=== PATIENT | male | born 1960 | race African-American/Black ===

== ENCOUNTER → 2016-05-02 | Outpatient (CLI) | payer OTHER ==
[2016-05-02 08:24] LABS: ANION GAP 17 (5-19); BLOOD UREA NITROGEN 64 mg/dL (7-20); CALCIUM 8.8 mg/dL (8.4-10.2); CARBON DIOXIDE 30 mmol/L (22-30); CHLORIDE 98 mmol/L (98-107); CREATININE RESULT 7.47 mg/dL (0.52-1.25); GLUCOSE 131 mg/dL (75-110); MAGNESIUM 2.2 mg/dL (1.6-2.3); PHOSPHORUS 5.7 mg/dL (2.5-4.5); POTASSIUM 3.2 mmol/L (3.6-5.0); SODIUM 144.7 mmol/L (137-145)
== END ==
LOC: CCC 07:07
DX: N18.9 Chronic kidney disease, unspecified (principal); E83.39 Other disorders of phosphorus metabolism
CPT/HCPCS: 36415; 80048; 83735; 84100

== ENCOUNTER → 2016-10-06 | Outpatient (CLI) | payer SELFPAY ==
[2016-10-06 08:21] LABS: HEMATOCRIT 37.9 % (37.9-51.0); HEMOGLOBIN 12.2 g/dL (13.5-17.0); HGB HCT DIFFERENCE -1.3; MEAN CORPUSCULAR HEMOGLOBIN 26.4 pg (27.0-33.4); MEAN CORPUSCULAR HGB CONC 32.1 g/dL (32.0-36.0); MEAN CORPUSCULAR VOLUME 82 fl (80-97); RED BLOOD COUNT 4.61 10^6/uL (4.35-5.55); WHITE BLOOD COUNT 7.9 10^3/uL (4.0-10.5)
[2016-10-06 08:23] LABS: APPEARANCE,URINE CLEAR; BILIRUBIN,URINE NEGATIVE (NEGATIVE); GLUCOSE, URINE NEGATIVE (NEGATIVE); KETONES,URINE NEGATIVE (NEGATIVE); LEUKOCYTE ESTERASE,URINE NEGATIVE (NEGATIVE); NITRITE,URINE NEGATIVE (NEGATIVE); PROTEIN,URINE 100 mg/dL (NEGATIVE); UROBILINOGEN,URINE NEGATIVE mg/dL (<2.0)
[2016-10-06 08:49] LABS: ANION GAP 13 (5-19); BLOOD UREA NITROGEN 24 mg/dL (7-20); CALCIUM 8.4 mg/dL (8.4-10.2); CARBON DIOXIDE 21 mmol/L (22-30); CHLORIDE 107 mmol/L (98-107); CREATININE RESULT 4.81 mg/dL (0.52-1.25); GLUCOSE 95 mg/dL (75-110); POTASSIUM 3.5 mmol/L (3.6-5.0); SODIUM 141.2 mmol/L (137-145)
== END ==
LOC: OD 07:16
PROVIDERS: ATTEND Physician Assistant Medical
DX: I12.9 Hypertensive chronic kidney disease with stage 1 through stage 4 chronic kidney disease, or unspecified chronic kidney disease (principal); N18.5 Chronic kidney disease, stage 5; R60.9 Edema, unspecified
CPT/HCPCS: 36415; 80048; 81001; 85027

== ENCOUNTER → 2016-11-11 | Outpatient (CLI) | payer SELFPAY ==
[2016-11-11 08:12] LABS: APPEARANCE,URINE CLEAR; BILIRUBIN,URINE NEGATIVE (NEGATIVE); GLUCOSE, URINE 50 mg/dL (NEGATIVE); KETONES,URINE NEGATIVE (NEGATIVE); LEUKOCYTE ESTERASE,URINE NEGATIVE (NEGATIVE); NITRITE,URINE NEGATIVE (NEGATIVE); PROTEIN,URINE >=500 mg/dL (NEGATIVE); URINE SPECIFIC GRAVITY 1.009; UROBILINOGEN,URINE NEGATIVE mg/dL (<2.0)
[2016-11-11 08:14] LABS: HEMATOCRIT 37.5 % (37.9-51.0); HEMOGLOBIN 12.3 g/dL (13.5-17.0); HGB HCT DIFFERENCE -0.6; MEAN CORPUSCULAR HEMOGLOBIN 26.9 pg (27.0-33.4); MEAN CORPUSCULAR HGB CONC 32.7 g/dL (32.0-36.0); MEAN CORPUSCULAR VOLUME 82 fl (80-97); RED BLOOD COUNT 4.56 10^6/uL (4.35-5.55); WHITE BLOOD COUNT 5.9 10^3/uL (4.0-10.5)
[2016-11-11 08:50] LABS: ANION GAP 13 (5-19); BLOOD UREA NITROGEN 16 mg/dL (7-20); CALCIUM 8.8 mg/dL (8.4-10.2); CARBON DIOXIDE 22 mmol/L (22-30); CHLORIDE 107 mmol/L (98-107); CREATININE RESULT 4.54 mg/dL (0.52-1.25); GLUCOSE 105 mg/dL (75-110); POTASSIUM 3.7 mmol/L (3.6-5.0); SODIUM 142.2 mmol/L (137-145)
== END ==
LOC: OD 07:07
PROVIDERS: ATTEND Physician Assistant Medical
DX: I12.0 Hypertensive chronic kidney disease with stage 5 chronic kidney disease or end stage renal disease (principal); N18.5 Chronic kidney disease, stage 5; R60.9 Edema, unspecified
CPT/HCPCS: 36415; 80048; 81001; 85027

== ENCOUNTER → 2016-12-26 | Outpatient (CLI) | payer SELFPAY ==
[2016-12-26 08:35] LABS: HEMATOCRIT 35.5 % (37.9-51.0); HEMOGLOBIN 11.7 g/dL (13.5-17.0); HGB HCT DIFFERENCE -0.4; MEAN CORPUSCULAR HEMOGLOBIN 26.8 pg (27.0-33.4); MEAN CORPUSCULAR VOLUME 81 fl (80-97); RED BLOOD COUNT 4.37 10^6/uL (4.35-5.55); RED CELL DISTRIBUTION WIDTH 14.8 % (11.5-14.0)
[2016-12-26 08:48] LABS: APPEARANCE,URINE CLEAR; BILIRUBIN,URINE NEGATIVE (NEGATIVE); GLUCOSE, URINE NEGATIVE (NEGATIVE); KETONES,URINE NEGATIVE (NEGATIVE); LEUKOCYTE ESTERASE,URINE NEGATIVE (NEGATIVE); NITRITE,URINE NEGATIVE (NEGATIVE); PROTEIN,URINE 100 mg/dL (NEGATIVE); URINE SPECIFIC GRAVITY 1.009; UROBILINOGEN,URINE NEGATIVE mg/dL (<2.0)
[2016-12-26 08:53] LABS: ANION GAP 10 (5-19); BLOOD UREA NITROGEN 26 mg/dL (7-20); CALCIUM 8.7 mg/dL (8.4-10.2); CARBON DIOXIDE 26 mmol/L (22-30); CHLORIDE 106 mmol/L (98-107); CREATININE RESULT 4.69 mg/dL (0.52-1.25); GLUCOSE 98 mg/dL (75-110); POTASSIUM 3.3 mmol/L (3.6-5.0); SODIUM 142.2 mmol/L (137-145)
[2016-12-26 09:07] LABS: URINE CREATININE 110.3 mg/dL (22-328)
== END ==
LOC: OD 07:06
PROVIDERS: ATTEND Physician Assistant Medical
DX: I12.9 Hypertensive chronic kidney disease with stage 1 through stage 4 chronic kidney disease, or unspecified chronic kidney disease (principal); N18.4 Chronic kidney disease, stage 4 (severe); R60.9 Edema, unspecified
CPT/HCPCS: 36415; 80048; 81001; 82570; 83970; 84100; 84156; 85027

== ENCOUNTER → 2017-04-09 | Outpatient (CLI) | payer SELFPAY ==
[2017-04-09 08:06] LABS: HEMATOCRIT 35.4 % (37.9-51.0); HEMOGLOBIN 11.5 g/dL (13.5-17.0); MEAN CORPUSCULAR HEMOGLOBIN 26.4 pg (27.0-33.4); MEAN CORPUSCULAR HGB CONC 32.5 g/dL (32.0-36.0); MEAN CORPUSCULAR VOLUME 81 fl (80-97); PLATELET COUNT 323 10^3/uL (150-450); RED BLOOD COUNT 4.36 10^6/uL (4.35-5.55); RED CELL DISTRIBUTION WIDTH 15.5 % (11.5-14.0); WHITE BLOOD COUNT 6.8 10^3/uL (4.0-10.5)
[2017-04-09 08:07] LABS: APPEARANCE,URINE CLEAR; BILIRUBIN,URINE NEGATIVE (NEGATIVE); COLOR,URINE STRAW; GLUCOSE, URINE 50 mg/dL (NEGATIVE); KETONES,URINE NEGATIVE (NEGATIVE); LEUKOCYTE ESTERASE,URINE NEGATIVE (NEGATIVE); NITRITE,URINE NEGATIVE (NEGATIVE); PROTEIN,URINE 100 mg/dL (NEGATIVE); URINE SPECIFIC GRAVITY 1.008; UROBILINOGEN,URINE NEGATIVE mg/dL (<2.0)
[2017-04-09 08:18] LABS: ANION GAP 10 (5-19); BLOOD UREA NITROGEN 28 mg/dL (7-20); CALCIUM 7.8 mg/dL (8.4-10.2); CARBON DIOXIDE 26 mmol/L (22-30); CHLORIDE 106 mmol/L (98-107); GLUCOSE 106 mg/dL (75-110); POTASSIUM 3.3 mmol/L (3.6-5.0); SODIUM 142.4 mmol/L (137-145)
[2017-04-09 08:28] LABS: URINE CREATININE 90.2 mg/dL (22-328)
[2017-04-09 08:35] LABS: UR PRO/CREAT RATIO RESULT 2.8 mg/mg (0.0-0.2); URINE PROTEIN 256.2 mg/dL (<12)
== END ==
LOC: OD 07:19
PROVIDERS: ATTEND Physician Assistant Medical
DX: I12.0 Hypertensive chronic kidney disease with stage 5 chronic kidney disease or end stage renal disease (principal); N18.5 Chronic kidney disease, stage 5; E87.6 Hypokalemia
CPT/HCPCS: 36415; 80048; 81001; 82570; 84156; 85027

== ENCOUNTER → 2017-06-19 | Outpatient (CLI) | payer SELFPAY ==
[2017-06-19 08:07] LABS: ANION GAP 12 (5-19); BLOOD UREA NITROGEN 26 mg/dL (7-20); CALCIUM 7.9 mg/dL (8.4-10.2); CARBON DIOXIDE 24 mmol/L (22-30); CHLORIDE 109 mmol/L (98-107); GLUCOSE 102 mg/dL (75-110); PHOSPHORUS 4.4 mg/dL (2.5-4.5); POTASSIUM 3.6 mmol/L (3.6-5.0); SODIUM 144.7 mmol/L (137-145)
[2017-06-19 08:15] LABS: URINE CREATININE 103.9 mg/dL (22-328)
[2017-06-19 08:27] LABS: URINE PROTEIN 310.1 mg/dL (<12)
== END ==
LOC: OD 07:22
PROVIDERS: ATTEND Physician Assistant Medical
DX: I13.2 Hypertensive heart and chronic kidney disease with heart failure and with stage 5 chronic kidney disease, or end stage renal disease (principal); N18.5 Chronic kidney disease, stage 5; I50.9 Heart failure, unspecified; E87.6 Hypokalemia
CPT/HCPCS: 36415; 80048; 82570; 83970; 84100; 84156

== ENCOUNTER → 2017-07-31 | Outpatient (CLI) | payer SELFPAY ==
[2017-07-31 07:33] LABS: HEMATOCRIT 34.9 % (37.9-51.0); HEMOGLOBIN 11.4 g/dL (13.5-17.0); MEAN CORPUSCULAR HEMOGLOBIN 27.2 pg (27.0-33.4); MEAN CORPUSCULAR HGB CONC 32.6 g/dL (32.0-36.0); MEAN CORPUSCULAR VOLUME 83 fl (80-97); PLATELET COUNT 322 10^3/uL (150-450); RED BLOOD COUNT 4.19 10^6/uL (4.35-5.55); RED CELL DISTRIBUTION WIDTH 14.9 % (11.5-14.0); WHITE BLOOD COUNT 6.9 10^3/uL (4.0-10.5)
[2017-07-31 07:39] LABS: APPEARANCE,URINE CLEAR; BILIRUBIN,URINE NEGATIVE (NEGATIVE); COLOR,URINE STRAW; GLUCOSE, URINE 50 mg/dL (NEGATIVE); KETONES,URINE NEGATIVE (NEGATIVE); LEUKOCYTE ESTERASE,URINE NEGATIVE (NEGATIVE); NITRITE,URINE NEGATIVE (NEGATIVE); PROTEIN,URINE >=500 mg/dL (NEGATIVE); URINE SPECIFIC GRAVITY 1.009; UROBILINOGEN,URINE NEGATIVE mg/dL (<2.0)
[2017-07-31 07:51] LABS: ANION GAP 13 (5-19); BLOOD UREA NITROGEN 33 mg/dL (7-20); CALCIUM 7.6 mg/dL (8.4-10.2); CARBON DIOXIDE 23 mmol/L (22-30); CHLORIDE 109 mmol/L (98-107); GLUCOSE 102 mg/dL (75-110); PHOSPHORUS 4.2 mg/dL (2.5-4.5); POTASSIUM 3.9 mmol/L (3.6-5.0)
== END ==
LOC: OD 07:07
PROVIDERS: ATTEND Physician Assistant Medical
DX: I12.0 Hypertensive chronic kidney disease with stage 5 chronic kidney disease or end stage renal disease (principal); N18.5 Chronic kidney disease, stage 5; I50.9 Heart failure, unspecified; E87.6 Hypokalemia
CPT/HCPCS: 36415; 80048; 81001; 83970; 84100; 85027

== ENCOUNTER → 2017-10-02 | Outpatient (CLI) | payer SELFPAY ==
[2017-10-02 09:32] LABS: HEMATOCRIT 35.1 % (37.9-51.0); HEMOGLOBIN 11.6 g/dL (13.5-17.0); MEAN CORPUSCULAR HEMOGLOBIN 27.5 pg (27.0-33.4); MEAN CORPUSCULAR HGB CONC 33.2 g/dL (32.0-36.0); MEAN CORPUSCULAR VOLUME 83 fl (80-97); PLATELET COUNT 348 10^3/uL (150-450); RED BLOOD COUNT 4.24 10^6/uL (4.35-5.55); RED CELL DISTRIBUTION WIDTH 14.4 % (11.5-14.0); WHITE BLOOD COUNT 7.5 10^3/uL (4.0-10.5)
[2017-10-02 09:53] LABS: APPEARANCE,URINE CLEAR; BILIRUBIN,URINE NEGATIVE (NEGATIVE); COLOR,URINE YELLOW; GLUCOSE, URINE 50 mg/dL (NEGATIVE); KETONES,URINE NEGATIVE (NEGATIVE); LEUKOCYTE ESTERASE,URINE NEGATIVE (NEGATIVE); NITRITE,URINE NEGATIVE (NEGATIVE); PROTEIN,URINE >=500 mg/dL (NEGATIVE); URINE SPECIFIC GRAVITY 1.011; UROBILINOGEN,URINE NEGATIVE mg/dL (<2.0)
[2017-10-02 09:56] LABS: ANION GAP 17 (5-19); BLOOD UREA NITROGEN 36 mg/dL (7-20); CALCIUM 7.6 mg/dL (8.4-10.2); CARBON DIOXIDE 21 mmol/L (22-30); CHLORIDE 107 mmol/L (98-107); GLUCOSE 95 mg/dL (75-110); POTASSIUM 3.7 mmol/L (3.6-5.0)
== END ==
LOC: OD 08:58
PROVIDERS: ATTEND Physician Assistant Medical
DX: I12.0 Hypertensive chronic kidney disease with stage 5 chronic kidney disease or end stage renal disease (principal); N18.5 Chronic kidney disease, stage 5; E87.6 Hypokalemia
CPT/HCPCS: 36415; 80048; 81001; 85027

== ENCOUNTER → 2018-01-15 | Outpatient (CLI) | payer SELFPAY ==
[2018-01-15 08:43] LABS: HEMATOCRIT 31.3 % (37.9-51.0); HEMOGLOBIN 10.3 g/dL (13.5-17.0); MEAN CORPUSCULAR HEMOGLOBIN 27.4 pg (27.0-33.4); MEAN CORPUSCULAR HGB CONC 32.9 g/dL (32.0-36.0); MEAN CORPUSCULAR VOLUME 83 fl (80-97); PLATELET COUNT 334 10^3/uL (150-450); RED BLOOD COUNT 3.76 10^6/uL (4.35-5.55); WHITE BLOOD COUNT 7.2 10^3/uL (4.0-10.5)
[2018-01-15 09:08] LABS: ANION GAP 13 (5-19); BLOOD UREA NITROGEN 42 mg/dL (7-20); CARBON DIOXIDE 23 mmol/L (22-30); CHLORIDE 109 mmol/L (98-107); GLUCOSE 95 mg/dL (75-110); POTASSIUM 4.3 mmol/L (3.6-5.0); SODIUM 144.5 mmol/L (137-145)
[2018-01-15 09:31] LABS: CALCIUM 6.7 mg/dL (8.4-10.2)
== END ==
LOC: OD 07:26
PROVIDERS: ATTEND Physician Assistant Medical
DX: I13.2 Hypertensive heart and chronic kidney disease with heart failure and with stage 5 chronic kidney disease, or end stage renal disease (principal); N18.5 Chronic kidney disease, stage 5; I50.9 Heart failure, unspecified; R60.9 Edema, unspecified
CPT/HCPCS: 36415; 80048; 85027

== ENCOUNTER 2018-03-02 16:18 | Inpatient (IN) | payer SELFPAY ==
[2018-03-02 16:50] LABS: ABSOLUTE BASOPHILS # (AUTO) 0.1 10^3/uL (0.0-0.2); ABSOLUTE EOSINOPHILS # (AUTO) 0.5 10^3/uL (0.0-0.6); ABSOLUTE LYMPHOCYTES (AUTO) 1.3 10^3/uL (0.5-4.7); ABSOLUTE MONOCYTES (AUTO) 0.5 10^3/uL (0.1-1.4); ABSOLUTE NEUT (AUTO) 7.5 10^3/uL (1.7-8.2); BASOPHILS % (AUTO) 0.9 % (0-2); EOSINOPHILS % (AUTO) 5.4 % (0-6); HEMATOCRIT 27.4 % (37.9-51.0); HEMOGLOBIN 9.2 g/dL (13.5-17.0); LYMPHOCYTES % (AUTO) 13.4 % (13-45); MEAN CORPUSCULAR HGB CONC 33.4 g/dL (32.0-36.0); MEAN CORPUSCULAR VOLUME 84 fl (80-97); MONOCYTES % (AUTO) 5.2 % (3-13); PLATELET COUNT 362 10^3/uL (150-450); RED BLOOD COUNT 3.27 10^6/uL (4.35-5.55); RED CELL DISTRIBUTION WIDTH 14.2 % (11.5-14.0); SEGMENTED NEUTROPHILS % (AUTO) 75.1 % (42-78); TOTAL CELLS COUNTED % (AUTO) 100 %; WHITE BLOOD COUNT 9.9 10^3/uL (4.0-10.5)
[2018-03-02 17:07] LABS: ALANINE AMINOTRANSFERASE 15 U/L (21-72); ALBUMIN 3.3 g/dL (3.5-5.0); ALKALINE PHOSPHATASE 64 U/L (38-126); ASPARTATE AMINO TRANSFERASE 15 U/L (17-59); BILIRUBIN,DIRECT 0.6 mg/dL (0.0-0.4); BILIRUBIN,TOTAL 0.6 mg/dL (0.2-1.3); CREATINE KINASE 620 U/L (55-170); GLUCOSE 107 mg/dL (75-110); POTASSIUM 4.1 mmol/L (3.6-5.0); TOTAL PROTEIN 6.7 g/dL (6.3-8.2)
[2018-03-02 17:13] LABS: CARBON DIOXIDE 17 mmol/L (22-30); CHLORIDE 101 mmol/L (98-107); SODIUM 141.2 mmol/L (137-145)
[2018-03-02 17:26] LABS: BLOOD UREA NITROGEN 148 mg/dL (7-20)
[2018-03-02 17:27] LABS: ANION GAP 23 (5-19)
[2018-03-02 17:28] LABS: CALCIUM 5.7 mg/dL (8.4-10.2)
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
[2018-03-02 19:08] LABS: GLUCOSE 98 mg/dL (75-110); POTASSIUM 4.4 mmol/L (3.6-5.0)
[2018-03-02 19:13] LABS: ANION GAP 19 (5-19); CARBON DIOXIDE 19 mmol/L (22-30); CHLORIDE 102 mmol/L (98-107); SODIUM 140.3 mmol/L (137-145)
[2018-03-02 19:19] LABS: CREATINE KINASE MB 3.83 ng/mL (<4.55)
[2018-03-02 19:45] LABS: BLOOD UREA NITROGEN 147 mg/dL (7-20)
[2018-03-02 19:48] LABS: CALCIUM 5.6 mg/dL (8.4-10.2); TROPONIN I 0.093 ng/mL
[2018-03-02] MEDS ORDERED: NORMAL SALINE 500 ML IV ONE (19:52)
[2018-03-02] MEDS ORDERED: CALCIUM GLUCONATE 1000 MG/10 ML INJ IV ONE (19:52)
--- NOTE | 2018-03-02 20:16 | EKG REPORT ---
SEVERITY:- ABNORMAL ECG - SINUS RHYTHM RIGHT ATRIAL ABNORMALITY PROBABLE ANTERIOR ISCHEMIA VS LVH WITH SECONDARY REPOL ABNRM : Confirmed by: Ebenezer Ruffin 02-Mar-2018 20:15:26
[2018-03-02] MEDS ORDERED: NORMAL SALINE 1000 ML 1,000 ML IV ONE (20:47)
[2018-03-02] MEDS ORDERED: MAG HYDROX/AL HYDROX/SIMETH SUSP 30 ML UDCUP PO PRN (20:56)
[2018-03-02] MEDS ORDERED: IPRATROPIUM/ALBUTEROL 0.5-2.5 MG/3 ML AMPUL NEB PRN (20:56)
[2018-03-02] MEDS ORDERED: NORMAL SALINE 1000 ML 1,000 ML IV SCH (21:00)
[2018-03-02] MEDS ORDERED: HYDRALAZINE HCL INJ/PF 20 MG/1 ML SDV IV PRN (21:05)
--- NOTE | 2018-03-02 22:03 | RADIOLOGY REPORT (SQ) ---
EXAM DESCRIPTION: X-ray single view chest. CLINICAL HISTORY: 57 years Male, sob COMPARISON: Prior portable chest performed on 06/25/2014. TECHNIQUE: Single portable view of the chest performed on 03/02/2018 at 9:03 PM FINDINGS: The lungs are well expanded and are clear. There is no evidence of a pneumothorax. The cardiac silhouette is stable and enlarged. The mediastinal contours are normal. No acute osseous abnormality is identified. No focal soft tissue abnormalities are seen. Lines and tubes: None. IMPRESSION: 1. No evidence of acute intrathoracic disease. 2. Stable cardiomegaly.
[2018-03-02] MEDS ORDERED: AMLODIPINE BESYLATE 10 MG TABLET PO ONE (23:20)
[2018-03-02] MEDS: HEPARIN SOD (PORCINE) 5,000 UNIT/ML 1 ML SYRINGE SUBCUT SCH (23:24)
[2018-03-02] MEDS: AMLODIPINE BESYLATE 10 MG TABLET PO SCH (23:29)
[2018-03-02] MEDS ORDERED: LISINOPRIL 10 MG TABLET PO ONE (23:59)
[2018-03-02] MEDS ORDERED: CLONIDINE HCL 0.2 MG TABLET PO ONE (23:59)
[2018-03-02] MEDS ORDERED: HYDRALAZINE HCL 50 MG TABLET PO ONE (23:59)
[2018-03-03 00:25] LABS: APPEARANCE,URINE CLEAR; BILIRUBIN,URINE NEGATIVE (NEGATIVE); COLOR,URINE STRAW; GLUCOSE, URINE 50 mg/dL (NEGATIVE); KETONES,URINE NEGATIVE (NEGATIVE); LEUKOCYTE ESTERASE,URINE NEGATIVE (NEGATIVE); NITRITE,URINE NEGATIVE (NEGATIVE); PROTEIN,URINE 100 mg/dL (NEGATIVE); URINE SPECIFIC GRAVITY 1.011; UROBILINOGEN,URINE NEGATIVE mg/dL (<2.0)
--- NOTE | 2018-03-03 02:03 | RADIOLOGY REPORT (SQ) ---
CLINICAL HISTORY: arf COMPARISON: None. TECHNIQUE: US RETROPERITONEUM on 03/02/2018 12:00 AM BOTTLE FILLER FINDINGS: Right kidney measures 8.8 cm and is increased in echogenicity. . Left kidney measures 8.4 cm in greatest dimension and is increased in echogenicity. There is mid pole 2.1 cm simple cyst. IMPRESSION: Bilateral mild renal atrophy with no hydronephrosis.
--- NOTE | 2018-03-03 04:10 | PDOC H&P ---
History of Present Illness Admission Date/PCP: 03/02/18 21:01 Patient complains of: Dizziness History of Present Illness: TERRIE ROSENBAUM is a 57 year old male with a past medical history of poorly controlled hypertension and stage IV chronic kidney disease. She presents shortly after taking his medications feeling lightheaded he seeks evaluation in the emergency room. He admits missing several weeks of medications. In the emergency room is found to have a blood pressure of 180/102, a BUN of 147 and creatinine of 25.8 and hypocalcemia. Patient denies recent change in p.o. intake or urine output and he is otherwise felt well. In the emergency room he receives an IV fluid challenge and referred to the hospitalist for admission. He denies chest pain, shortness of breath, nausea vomiting Past Medical History Cardiac Medical History: Reports: Hypertension Renal/ Medical History: Reports: Chronic Kidney Disease Psychiatric Medical History: Denies: Depression Past Surgical History Past Surgical History: Reports: None Social History Information Source: Patient Lives with: Alone Smoking Status: Never Smoker Frequency of Alcohol Use: Rare Hx Recreational Drug Use: No Drugs: None Hx Prescription Drug Abuse: No - Advance Directive Resuscitation Status: Full Code Family History Family History: CAD, Hypertension Parental Family History Reviewed: Yes Children Family History Reviewed: Yes Sibling(s) Family History Reviewed.: Yes Medication/Allergy Home Medications: Clonidine HCl [Catapres 0.2 mg Tablet] 0.2 mg PO Q12 03/02/18 Furosemide [Lasix 20 mg Tablet] 20 mg PO MO@1800 03/02/18 Hydralazine HCl [Apresoline 50 mg Tablet] 100 mg PO Q8 03/02/18 Lisinopril [Prinivil 10 mg Tablet] 10 mg PO QHS 03/02/18 Sodium Bicarbonate [Sodium Bicarbonate 650 mg Tablet] 650 mg PO DAILY 03/02/18 Allergies/Adverse Reactions: No Known Allergies Allergy (Verified 03/02/18 17:24) Review of Systems Constitutional: ABSENT: chills, fever(s), headache(s), weight gain, weight loss Eyes: ABSENT: visual disturbances Ears: ABSENT: hearing changes Cardiovascular: ABSENT: chest pain, dyspnea on exertion, edema, orthropnea, palpitations Respiratory: ABSENT: cough, hemoptysis Gastrointestinal: ABSENT: abdominal pain, constipation, diarrhea, hematemesis, hematochezia, nausea, vomiting Genitourinary: ABSENT: dysuria, hematuria Musculoskeletal: ABSENT: joint swelling Integumentary: ABSENT: rash, wounds Neurological: ABSENT: abnormal gait, abnormal speech, confusion, dizziness, focal weakness, syncope Psychiatric: ABSENT: anxiety, depression, homidical ideation, suicidal ideation Endocrine: ABSENT: cold intolerance, heat intolerance, polydipsia, polyuria Hematologic/Lymphatic: ABSENT: easy bleeding, easy bruising Physical Exam Vital Signs: Temp Pulse Resp BP Pulse Ox 98.1 F 92 22 H 156/85 H 98 03/03/18 03:13 03/03/18 03:13 03/03/18 03:13 03/03/18 03:13 03/03/18 03:13 Intake & Output 03/01/18 03/02/18 03/03/18 11:59 11:59 11:59 Intake Total 500 Output Total 0 Balance 500 General appearance: PRESENT: no acute distress, well-developed, well-nourished Head exam: PRESENT: atraumatic, normocephalic Eye exam: PRESENT: conjunctiva pink, EOMI, PERRLA. ABSENT: scleral icterus Ear exam: PRESENT: normal external ear exam Mouth exam: PRESENT: moist, tongue midline Neck exam: ABSENT: carotid bruit, JVD, lymphadenopathy, thyromegaly Respiratory exam: PRESENT: clear to auscultation missy. ABSENT: rales, rhonchi, wheezes Cardiovascular exam: PRESENT: RRR. ABSENT: diastolic murmur, rubs, systolic murmur Pulses: PRESENT: normal dorsalis pedis pul Vascular exam: PRESENT: normal capillary refill GI/Abdominal exam: PRESENT: normal bowel sounds, soft. ABSENT: distended, guarding, mass, organolmegaly, rebound, tenderness Rectal exam: PRESENT: deferred Extremities exam: PRESENT: full ROM. ABSENT: calf tenderness, clubbing, pedal edema Neurological exam: PRESENT: alert, awake, oriented to person, oriented to place , oriented to time, oriented to situation, CN II-XII grossly intact. ABSENT: motor sensory deficit Psychiatric exam: PRESENT: appropriate affect, normal mood. ABSENT: homicidal ideation, suicidal ideation Skin exam: PRESENT: dry, intact, warm. ABSENT: cyanosis, rash Results Laboratory Results: 03/02/18 23:50 Urine Color STRAW Urine Appearance CLEAR Urine pH 5.0 Ur Specific [place] 1.011 Urine Protein 100 H Urine Glucose (UA) 50 H Urine Ketones NEGATIVE Urine Blood SMALL H Urine Nitrite NEGATIVE Ur Leukocyte Esterase NEGATIVE Urine WBC (Auto) 2 Urine RBC (Auto) 4 Impressions: Renal Ultrasound 03/02/18 00:00 IMPRESSION: Bilateral mild renal atrophy with no hydronephrosis. Chest X-Ray 03/02/18 20:47 IMPRESSION: 1. No evidence of acute intrathoracic disease. 2. Stable cardiomegaly. Assessment & Plan - Diagnosis (1) Acute renal failure Qualifiers: Acute renal failure type: unspecified Qualified Code(s): N17.9 - Acute kidney failure, unspecified Is this a current diagnosis for this admission?: Yes Plan: IV fluid challenge, follow-up urinalysis, chemistry and nephrology consult (2) Hypocalcemia Is this a current diagnosis for this admission?: Yes Plan: Repletion with follow-up chemistry (3) Rhabdomyolysis Qualifiers: Rhabdomyolysis type: non-traumatic Qualified Code(s): M62.82 - Rhabdomyolysis Is this a current diagnosis for this admission?: Yes Plan: Unclear onset likely confounding acute on chronic renal failure, IV fluid challenge follow-up total CK (4) Malignant hypertension Is this a current diagnosis for this admission?: Yes Plan: Scheduled Norvasc, clonidine and hydralazine as needed - Time Time Spent: 50 to 70 Minutes - Inpatient Certification Medical Necessity: Need Close Monitoring Due to Risk of Patient Decompensation
[2018-03-03 05:07] LABS: ABSOLUTE BASOPHILS # (AUTO) 0.1 10^3/uL (0.0-0.2); ABSOLUTE EOSINOPHILS # (AUTO) 0.5 10^3/uL (0.0-0.6); ABSOLUTE LYMPHOCYTES (AUTO) 1.3 10^3/uL (0.5-4.7); ABSOLUTE MONOCYTES (AUTO) 0.6 10^3/uL (0.1-1.4); ABSOLUTE NEUT (AUTO) 6.1 10^3/uL (1.7-8.2); BASOPHILS % (AUTO) 0.8 % (0-2); EOSINOPHILS % (AUTO) 5.6 % (0-6); HEMATOCRIT 22.7 % (37.9-51.0); LYMPHOCYTES % (AUTO) 15.5 % (13-45); MEAN CORPUSCULAR HEMOGLOBIN 28.4 pg (27.0-33.4); MEAN CORPUSCULAR HGB CONC 33.8 g/dL (32.0-36.0); MEAN CORPUSCULAR VOLUME 84 fl (80-97); MONOCYTES % (AUTO) 6.9 % (3-13); PLATELET COUNT 294 10^3/uL (150-450); RED CELL DISTRIBUTION WIDTH 14.3 % (11.5-14.0); SEGMENTED NEUTROPHILS % (AUTO) 71.2 % (42-78); TOTAL CELLS COUNTED % (AUTO) 100 %; WHITE BLOOD COUNT 8.5 10^3/uL (4.0-10.5)
[2018-03-03 05:14] LABS: HEMOGLOBIN 7.7 g/dL (13.5-17.0)
[2018-03-03 05:31] LABS: CHOLESTEROL 181.56 mg/dL (0-200); CREATINE KINASE 511 U/L (55-170); GLUCOSE 106 mg/dL (75-110); POTASSIUM 4.4 mmol/L (3.6-5.0); TRIGLYCERIDES 271 mg/dL (<150)
[2018-03-03] MEDS: HYDRALAZINE HCL 50 MG TABLET PO SCH ×3 (05:33→22:08)
[2018-03-03] MEDS: HEPARIN SOD (PORCINE) 5,000 UNIT/ML 1 ML SYRINGE SUBCUT SCH ×3 (05:34→22:08)
[2018-03-03 05:39] LABS: CARBON DIOXIDE 16 mmol/L (22-30); CHLORIDE 106 mmol/L (98-107)
[2018-03-03 05:42] LABS: DIRECT LDL 91 mg/dL (<100)
[2018-03-03 05:46] LABS: BLOOD UREA NITROGEN 147 mg/dL (7-20); VLDL CHOLESTEROL 54.2 mg/dL (10-31)
[2018-03-03 05:48] LABS: ANION GAP 20 (5-19)
[2018-03-03 05:56] LABS: CALCIUM 5.5 mg/dL (8.4-10.2)
[2018-03-03] MEDS ORDERED: CALCIUM GLUCONATE 2,000 MG in DEXTROSE 5%-WATER 100 ML IV ONE (06:30)
[2018-03-03] MEDS ORDERED: CALCIUM GLUCONATE 1000 MG/10 ML INJ IV ONE ×2 (06:47→12:00)
[2018-03-03] MEDS ORDERED: CALCIUM GLUCONATE 1,000 MG in DEXTROSE 5%-WATER 50 ML IV ONE (09:57)
[2018-03-03] MEDS ORDERED: SODIUM BICARBONATE 650 MG TABLET PO SCH (10:00)
--- NOTE | 2018-03-03 10:12 | PDOC PROGRESS REPORT ---
Subjective Progress Note for:: 03/03/18 Subjective:: Patient is resting comfortably in bed. He is awaiting breakfast. He has no acute complaints. Reason For Visit: ARF ON CRF, HYPOCALCEMIA Physical Exam Vital Signs: Temp Pulse Resp BP Pulse Ox 97.8 F 92 20 123/66 99 03/03/18 07:38 03/03/18 07:38 03/03/18 07:38 03/03/18 07:38 03/03/18 07:38 Intake & Output 03/02/18 03/03/18 03/04/18 06:59 06:59 06:59 Intake Total 1500 Output Total 200 Balance 1300 Weight 102.9 kg General appearance: PRESENT: no acute distress, cooperative, well-developed Head exam: PRESENT: atraumatic, normocephalic Eye exam: PRESENT: conjunctiva pale. ABSENT: scleral icterus Mouth exam: PRESENT: moist, tongue midline Respiratory exam: PRESENT: clear to auscultation missy, symmetrical, unlabored. ABSENT: rales, rhonchi, wheezes Cardiovascular exam: PRESENT: RRR, +S1, +S2, systolic murmur - 2/6 GI/Abdominal exam: PRESENT: normal bowel sounds, soft. ABSENT: guarding, tenderness Neurological exam: PRESENT: alert, awake, oriented to person, oriented to place , oriented to time, oriented to situation, CN II-XII grossly intact Psychiatric exam: PRESENT: flat affect Results Laboratory Results: 03/03/18 04:15 03/03/18 04:15 03/02/18 03/03/18 03/03/18 23:50 04:15 04:15 WBC 8.5 RBC 2.70 L Hgb 7.7 L Hct 22.7 L MCV 84 MCH 28.4 MCHC 33.8 RDW 14.3 H Plt Count 294 Seg Neutrophils % 71.2 Lymphocytes % 15.5 Monocytes % 6.9 Eosinophils % 5.6 Basophils % 0.8 Absolute Neutrophils 6.1 Absolute Lymphocytes 1.3 Absolute Monocytes 0.6 Absolute Eosinophils 0.5 Absolute Basophils 0.1 Sodium 142.0 Potassium 4.4 Chloride 106 Carbon Dioxide 16 L Anion Gap 20 H BUN 147 H Creatinine 25.75 H Est GFR ( Amer) 2 L Est GFR (Non-Af Amer) 2 L Glucose 106 Calcium 5.5 L* Triglycerides 271 H Cholesterol 181.56 LDL Cholesterol Direct 91 VLDL Cholesterol 54.2 H HDL Cholesterol 24 L Urine Color STRAW Urine Appearance CLEAR Urine pH 5.0 Ur Specific [place] 1.011 Urine Protein 100 H Urine Glucose (UA) 50 H Urine Ketones NEGATIVE Urine Blood SMALL H Urine Nitrite NEGATIVE Ur Leukocyte Esterase NEGATIVE Urine WBC (Auto) 2 Urine RBC (Auto) 4 03/03/18 03/03/18 04:15 04:15 Creatine Kinase 511 H Troponin I 0.101 Impressions: Renal Ultrasound 03/02/18 00:00 IMPRESSION: Bilateral mild renal atrophy with no hydronephrosis. Chest X-Ray 03/02/18 20:47 IMPRESSION: 1. No evidence of acute intrathoracic disease. 2. Stable cardiomegaly. Assessment & Plan - Diagnosis (1) Acute on chronic renal failure Is this a current diagnosis for this admission?: Yes Plan: 03/03/2018-the patient is having a try cath placed this morning for hemodialysis. Please also see nephrology note. (2) Anemia of chronic renal failure Qualifiers: Chronic kidney disease stage: stage 5 Qualified Code(s): N18.5 - Chronic kidney disease, stage 5; D63.1 - Anemia in chronic kidney disease; D63.1 - Anemia in chronic kidney disease Is this a current diagnosis for this admission?: Yes Plan: 03/03/2018-on admission the patient's hemoglobin was 9.3. It is down below 8 today. He may require transfusion with his dialysis. (3) Hypocalcemia Is this a current diagnosis for this admission?: Yes Plan: 03/03/2018-the patient's calcium is still below 6. It does not correct into the normal range with his low albumin. I will administer an additional gram of calcium gluconate and initiate calcium carbonate therapy. (4) Hypertension Qualifiers: Hypertension type: essential hypertension Qualified Code(s): I10 - Essential (primary) hypertension Is this a current diagnosis for this admission?: Yes Plan: 03/03/2018-continue current cardiac meds. Blood pressure is stable this morning. - Time Time Spent with patient: 15-24 minutes Medications reviewed and adjusted accordingly: Yes
[2018-03-03] MEDS: DOCUSATE SODIUM 100 MG CAPSULE PO SCH ×2 (10:46→17:46)
[2018-03-03] MEDS: AMLODIPINE BESYLATE 10 MG TABLET PO SCH (10:46)
[2018-03-03] MEDS: CLONIDINE HCL 0.2 MG TABLET PO SCH ×2 (10:46→22:08)
[2018-03-03] MEDS ORDERED: LIDOCAINE 1% INJ-PF (10 MG/ML) 30 ML SDV ONE (12:43)
[2018-03-03] MEDS: ACETAMINOPHEN 325 MG TABLET PO PRN (17:08)
[2018-03-03] MEDS: CALCIUM CARBONATE 500 MG TABLET PO SCH (17:46)
[2018-03-03] MEDS ORDERED: EPOETIN ALFA INJ 40000 UNIT/1 ML (RENAL) IV PRN (19:19)
--- NOTE | 2018-03-03 20:39 | PDOC CONSULTATION ---
Consultation Consult Date: 03/03/18 Attending physician:: NATO ECHAVARRIA Consult reason:: I was asked to see the patient due to worsening kidney function. History of Present Illness Admission Date/PCP: 03/02/18 21:01 History of Present Illness: TERRIE ROSENBAUM is a 57 year old male known to our practice with history of chronic kidney disease stage V secondary to hypertension who presented to the emergency room yesterday because of lightheadedness after taking his medications. Patient was then found to have elevated blood pressure initially running between 150-190/85- 108 last night. His BUN was 148 and his creatinine is 25.23 with a GFR of 2. Patient was given IV fluid boluses last night but today's kidney function is no different. His baseline kidney function shows a BUN of 42-50 and creatinine of 8-11.9 with EGFR of 5-10 for the last 3-4 months. He also presented with hypocalcemia with calcium of 5.7-5.5 with low albumin of 3.3. Urinalysis showed mild proteinuria and small blood. His chest x-ray showed cardiomegaly but no pulmonary congestion. His kidney ultrasound showed bilateral small kidneys with right kidney measuring at 8.8 cm and left kidney measuring at 8.4 cm with 2.1 cm midpole renal cyst. There is no hydronephrosis. Aside from IV fluids patient was also given IV calcium supplement last night. I am seeing the patient during dialysis treatment this afternoon. He is answering questions appropriately but complains of pain or pressure in the right femoral trialysis catheter insertion site. He also relates that for the last 3-4 days he knows that his blood pressure is been elevated. He told the emergency room provider that he has been missing his blood pressure medications. He admits feeling fatigue, short of breath and more sleepy. He denies any nausea, vomiting or diarrhea. He admits having no appetite and has not really been eating any solids nor much liquids for the last 3-4 days. He denies any chest pain is noticed leg swelling. Currently he is tolerating dialysis without any complications except for the pain as mentioned above. Past Medical History Cardiac Medical History: Reports: Hypertension-primary Renal/ Medical History: Reports: Chronic Kidney Disease Stage V, Hypocalcemia , Metabolic Acidosis Hematology Medical History: Reports Anemia of Chronic Kidney Disease Past Surgical History Past Surgical History: Reports: None Social History Information Source: Patient Lives with: Alone Smoking Status: Never Smoker Frequency of Alcohol Use: Rare Hx Recreational Drug Use: No Drugs: None Hx Prescription Drug Abuse: No - Advance Directive Resuscitation Status: Full Code Family History Family History: Hypertension - Mother Parental Family History Reviewed: Yes Children Family History Reviewed: Unknown Sibling(s) Family History Reviewed.: Yes Medication/Allergy Home Medications: Clonidine HCl [Catapres 0.2 mg Tablet] 0.2 mg PO Q12 03/02/18 Furosemide [Lasix 20 mg Tablet] 20 mg PO MO@1800 03/02/18 Hydralazine HCl [Apresoline 50 mg Tablet] 100 mg PO Q8 03/02/18 Lisinopril [Prinivil 10 mg Tablet] 10 mg PO QHS 03/02/18 Sodium Bicarbonate [Sodium Bicarbonate 650 mg Tablet] 650 mg PO DAILY 03/02/18 Allergies/Adverse Reactions: No Known Allergies Allergy (Verified 03/02/18 17:24) Review of Systems All systems: reviewed and no additional remarkable complaints except as stated Review of Systems: Constitutional: ABSENT: chills, fever(s), headache(s), weight gain, weight loss ; positive fatigue and poor appetite Eyes: ABSENT: visual disturbances Ears: ABSENT: hearing changes Cardiovascular: ABSENT: chest pain, edema, orthropnea, palpitations; admits shortness of breath Respiratory: ABSENT: cough, hemoptysis Gastrointestinal: ABSENT: abdominal pain, constipation, diarrhea, hematemesis, hematochezia, nausea, vomiting Genitourinary: ABSENT: dysuria, hematuria Musculoskeletal: ABSENT: joint swelling Integumentary: ABSENT: rash, wounds Neurological: ABSENT: abnormal gait, abnormal speech, confusion, focal weakness , numbness, syncope; admits lightheadedness Psychiatric: ABSENT: anxiety, depression Endocrine: ABSENT: cold intolerance, heat intolerance, polydipsia, polyuria Hematologic/Lymphatic: ABSENT: easy bleeding, easy bruising, lymphadenopathy Physical Exam Vital Signs: Temp Pulse Resp BP Pulse Ox 98.3 F 91 22 H 108/61 100 03/03/18 16:04 03/03/18 16:04 03/03/18 16:04 03/03/18 16:04 03/03/18 16:04 Intake & Output 03/02/18 03/03/18 03/04/18 06:59 06:59 06:59 Intake Total 1500 1005 Output Total 200 Balance 1300 1005 Weight 102.9 kg Vitals during dialysis currently: Blood pressure 153/87, heart rate of 89, blood flow rate of 250 mL/min, dialysate flow rate of 500 mL/min. Exam: General appearance: No acute distress, cooperative, well-developed, well- nourished Head exam: PRESENT: atraumatic, normocephalic Eye exam: PRESENT: Conjunctiva slightly pale, EOMI, PERRLA. ABSENT: conjunctival injection, scleral icterus Mouth exam: PRESENT: moist, neck supple, tongue midline Neck exam: PRESENT: full ROM. ABSENT: carotid bruit, JVD, lymphadenopathy, thyromegaly Respiratory exam: PRESENT: clear to auscultation bilaterally. ABSENT: rales, rhonchi, stridor, wheezes Cardiovascular exam: PRESENT: RRR, +S1, +S2. ABSENT: systolic murmur Pulses: PRESENT: normal radial pulses, normal dorsalis pedis pulses GI/Abdominal exam: PRESENT: normal bowel sounds, soft. ABSENT: guarding, mass, tenderness Rectal exam: Deferred Extremities exam: PRESENT: full ROM. ABSENT: calf tenderness, pedal edema Musculoskeletal: PRESENT: full ROM. ABSENT: deformity Neurological exam: PRESENT: alert, Awake, Oriented to person, Oriented to place , Oriented to time, reflexes normal, CN II-XII grossly intact. ABSENT: motor sensory deficit Psychiatric exam: PRESENT: appropriate affect, normal mood. ABSENT: homicidal ideation, suicidal ideation Skin exam: PRESENT: intact, dry, warm. ABSENT: rash Results Laboratory Results: 03/03/18 04:15 03/03/18 04:15 03/02/18 03/03/18 03/03/18 23:50 04:15 04:15 WBC 8.5 RBC 2.70 L Hgb 7.7 L Hct 22.7 L MCV 84 MCH 28.4 MCHC 33.8 RDW 14.3 H Plt Count 294 Seg Neutrophils % 71.2 Lymphocytes % 15.5 Monocytes % 6.9 Eosinophils % 5.6 Basophils % 0.8 Absolute Neutrophils 6.1 Absolute Lymphocytes 1.3 Absolute Monocytes 0.6 Absolute Eosinophils 0.5 Absolute Basophils 0.1 Sodium 142.0 Potassium 4.4 Chloride 106 Carbon Dioxide 16 L Anion Gap 20 H BUN 147 H Creatinine 25.75 H Est GFR ( Amer) 2 L Est GFR (Non-Af Amer) 2 L Glucose 106 Calcium 5.5 L* Triglycerides 271 H Cholesterol 181.56 LDL Cholesterol Direct 91 VLDL Cholesterol 54.2 H HDL Cholesterol 24 L Urine Color STRAW Urine Appearance CLEAR Urine pH 5.0 Ur Specific [place] 1.011 Urine Protein 100 H Urine Glucose (UA) 50 H Urine Ketones NEGATIVE Urine Blood SMALL H Urine Nitrite NEGATIVE Ur Leukocyte Esterase NEGATIVE Urine WBC (Auto) 2 Urine RBC (Auto) 4 03/03/18 03/03/18 04:15 04:15 Creatine Kinase 511 H Troponin I 0.101 Impressions: Renal Ultrasound 03/02/18 00:00 IMPRESSION: Bilateral mild renal atrophy with no hydronephrosis. Chest X-Ray 03/02/18 20:47 IMPRESSION: 1. No evidence of acute intrathoracic disease. 2. Stable cardiomegaly. Assessment & Plan - Diagnosis (1) Acute on chronic renal failure Is this a current diagnosis for this admission?: Yes Plan: Patient has acute worsening of his kidney function which could be secondary to volume depletion causing prerenal azotemia. However it is very possible that the patient actually have progressively worsening kidney disease progressing to now end-stage renal disease causing poor appetite which could have led to volume depletion. Some of the patient's symptoms including poor appetite and fatigue could be attributed to worsening underlying chronic kidney disease. Patient has been given IV fluid boluses and still ordered to receive some IV fluid hydration today. This could be continued to see if this can make a difference in terms of the patient's kidney function. Meanwhile I think for solute clearance the patient can benefit from acute dialysis treatment. We are doing dialysis today for 2.5 hours, using the patient's newly placed right inguinal trialysis catheter, with 2 potassium bath, blood flow rate of 250 mL per minute, dialysate flow rate of 500 mL per minute, no ultrafiltration and give saline about 500-1 L during dialysis, no heparin and Procrit with 40, 000 units during dialysis intravenously. Monitor kidney function to determine further need of dialysis treatment which I suspect the patient would need moving forward. Avoid nephrotoxic medications. Hold lisinopril for now. (2) CKD stage 5 secondary to hypertension Is this a current diagnosis for this admission?: Yes Plan: This is due to hypertensive nephrosclerosis. Associated with mild proteinuria. We will check the patient's phosphorus level, intact PTH and urine protein to creatinine ratio. Place the patient on renal dialysis diet. Will do a PPD just in case the patient ends up requiring chronic dialysis treatment. Hepatitis panel is currently pending. I discussed with patient the possibility that he might end up requiring chronic dialysis treatment moving forward if his kidney function does not show any renal recovery in the next couple of days. Discussed how dialysis is being done in the treatment frequency as an outpatient being treated times a week. Discussed benefits and risks. Patient understood and did not have any questions. (3) Anemia of chronic renal failure Qualifiers: Chronic kidney disease stage: stage 5 Qualified Code(s): N18.5 - Chronic kidney disease, stage 5; D63.1 - Anemia in chronic kidney disease; D63.1 - Anemia in chronic kidney disease Is this a current diagnosis for this admission?: Yes Plan: We will give Procrit 40,000 units intravenously during dialysis treatment. Check iron panel. (4) Metabolic acidosis Is this a current diagnosis for this admission?: Yes Plan: Continue sodium bicarbonate for now but hemodialysis will surely help. (5) Hypertension Qualifiers: Hypertension type: essential hypertension Qualified Code(s): I10 - Essential (primary) hypertension Is this a current diagnosis for this admission?: Yes Plan: Continue current blood pressure regimen but discontinue lisinopril. (6) Hypocalcemia Is this a current diagnosis for this admission?: Yes Plan: Patient was given a total of 3 g of IV calcium gluconate earlier today. We will recheck the patient's calcium level tomorrow and replace further if necessary. Also check phosphorus and if needed initiate therapy if elevated. (7) Hyperlipidemia Is this a current diagnosis for this admission?: Yes - Notes Notes: Thank you very much for this consultation. We will follow the patient very closely with you. - Time Time Spent: Greater than 70 Minutes
[2018-03-03] MEDS ORDERED: TUBERCULIN,PURIF.PROT.DERIV. 5 TU/0.1 ML TEST 1 ML VIAL ID ONE (21:15)
[2018-03-03] MEDS ORDERED: LISINOPRIL 10 MG TABLET PO SCH (22:00)
[2018-03-04] MEDS: ACETAMINOPHEN 325 MG TABLET PO PRN (00:54)
[2018-03-04] MEDS: HYDRALAZINE HCL 50 MG TABLET PO SCH ×3 (05:07→22:03)
[2018-03-04] MEDS: HEPARIN SOD (PORCINE) 5,000 UNIT/ML 1 ML SYRINGE SUBCUT SCH ×3 (05:08→22:04)
[2018-03-04 06:26] LABS: URINE CREATININE 89.3 mg/dL (22-328); URINE PROTEIN 182.9 mg/dL (<12)
[2018-03-04 07:05] LABS: ABSOLUTE RETICS # 0.049 10^6/uL (0.028-0.122); HEMATOCRIT 20.5 % (37.9-51.0); MEAN CORPUSCULAR HEMOGLOBIN 28.7 pg (27.0-33.4); MEAN CORPUSCULAR HGB CONC 34.3 g/dL (32.0-36.0); MEAN CORPUSCULAR VOLUME 84 fl (80-97); PLATELET COUNT 287 10^3/uL (150-450); RED BLOOD COUNT 2.45 10^6/uL (4.35-5.55); RED CELL DISTRIBUTION WIDTH 14.1 % (11.5-14.0)
[2018-03-04 07:22] LABS: ALBUMIN 2.4 g/dL (3.5-5.0); ANION GAP 11 (5-19); BLOOD UREA NITROGEN 84 mg/dL (7-20); CARBON DIOXIDE 25 mmol/L (22-30); CHLORIDE 105 mmol/L (98-107); GLUCOSE 94 mg/dL (75-110); IRON(TIBC) 54.1 ug/dL (49-181); PHOSPHORUS 6.1 mg/dL (2.5-4.5); POTASSIUM 4.2 mmol/L (3.6-5.0); SODIUM 140.7 mmol/L (137-145)
[2018-03-04 07:48] LABS: CALCIUM 6.1 mg/dL (8.4-10.2)
[2018-03-04 08:28] LABS: FOLATE 4.24 ng/mL (>2.76)
[2018-03-04] MEDS ORDERED: NORMAL SALINE 250 ML IV PRN (08:51)
[2018-03-04] MEDS ORDERED: HYDROCODONE/ACETAMINOPHEN 5-325 MG TABLET PO PRN (08:52)
[2018-03-04] MEDS ORDERED: CALCIUM GLUCONATE 1,000 MG in DEXTROSE 5%-WATER 50 ML IV SCH (09:00)
--- NOTE | 2018-03-04 09:09 | PDOC PROGRESS REPORT ---
Subjective Progress Note for:: 03/04/18 Subjective:: Patient complains of pain in the right femoral insertion site of his trialysis catheter. He continues to feel tired and fatigued. Otherwise he denies any nausea, no shortness of breath. Reason For Visit: ARF ON CRF, HYPOCALCEMIA Physical Exam Vital Signs: Temp Pulse Resp BP Pulse Ox 98.4 F 96 12 125/77 97 03/04/18 07:21 03/04/18 08:11 03/04/18 08:11 03/04/18 07:21 03/04/18 08:11 Intake & Output 03/03/18 03/04/18 03/05/18 06:59 06:59 06:59 Intake Total 1500 2645 Output Total 200 0 Balance 1300 2645 Weight 102.9 kg 112.7 kg Exam: General appearance: PRESENT: no acute distress, cooperative, well-developed, well-nourished Head exam: PRESENT: atraumatic, normocephalic Eye exam: PRESENT: conjunctiva pale, PERRLA. ABSENT: scleral icterus Neck exam: ABSENT: JVD Respiratory exam: PRESENT: Normal breath sounds. ABSENT: crackles, rales, rhonchi, unlabored, wheezes Cardiovascular exam: PRESENT: Regular rate rhythm -+S1, +S2. ABSENT: diastolic murmur, systolic murmur GI/Abdominal exam: PRESENT: normal bowel sounds, soft. ABSENT: guarding, mass, tenderness Extremities exam: ABSENT: No edema Neurological exam: PRESENT: alert, awake, oriented to person, place and time. Skin exam: PRESENT: dry, warm, Results Laboratory Results: 03/04/18 06:49 03/04/18 06:49 03/04/18 03/04/18 03/04/18 06:49 06:49 06:49 WBC 8.0 RBC 2.45 L Hgb 7.0 L Hct 20.5 L MCV 84 MCH 28.7 MCHC 34.3 RDW 14.1 H Plt Count 287 Retic Count (auto) 2.00 Absolute Retic 0.049 Sodium 140.7 Potassium 4.2 Chloride 105 Carbon Dioxide 25 Anion Gap 11 BUN 84 H Creatinine 16.35 H Est GFR ( Amer) 4 L Est GFR (Non-Af Amer) 3 L Glucose 94 Calcium 6.1 L* Phosphorus 6.1 H Iron 54.1 TIBC 199 L % Saturation 27 Ferritin 108.00 Albumin 2.4 L Vitamin B12 371.0 Folate 4.24 PTH Intact 279.8 H 03/03/18 03/03/18 04:15 04:15 Creatine Kinase 511 H Troponin I 0.101 Impressions: Renal Ultrasound 03/02/18 00:00 IMPRESSION: Bilateral mild renal atrophy with no hydronephrosis. Chest X-Ray 03/02/18 20:47 IMPRESSION: 1. No evidence of acute intrathoracic disease. 2. Stable cardiomegaly. Assessment & Plan - Diagnosis (1) Acute on chronic renal failure Is this a current diagnosis for this admission?: Yes Plan: As I mention the worsening of kidney function is either due to starting uremic symptoms due to progressive deterioration of his kidney disease which could now be at end-stage renal disease causing poor oral intake and dehydration versus merely prerenal azotemia. I favor earlier than the latter. We will prepare the patient for possible eventuality of requiring chronic hemodialysis treatment moving forward. We will plan for PermCath placement early next week depending on how his kidney function is going to respond or improve for the next few days. We will plan to do another dialysis treatment tomorrow. Encourage oral fluid intake. Avoid further nephrotoxic medications. Monitor kidney function daily for the next few days. (2) CKD stage 5 secondary to hypertension Is this a current diagnosis for this admission?: Yes Plan: Associated with nonnephrotic range proteinuria secondary to hypertensive nephrosclerosis due to long-term uncontrolled hypertension. (3) Anemia of chronic renal failure Qualifiers: Chronic kidney disease stage: stage 5 Qualified Code(s): N18.5 - Chronic kidney disease, stage 5; D63.1 - Anemia in chronic kidney disease; D63.1 - Anemia in chronic kidney disease Is this a current diagnosis for this admission?: Yes Plan: Iron panel is acceptable. Will transfuse 1 unit of packed RBC today and possibly 1 or 2 more packed RBC tomorrow during dialysis. Patient will need Procrit and was given the first dose yesterday and now. Will check stool for occult blood. (4) Hypocalcemia Is this a current diagnosis for this admission?: Yes Plan: Phosphorus is pending but I suspect this is due to elevated phosphorus. We will give the patient IV calcium gluconate every 8 hours until calcium is corrected. (5) Secondary hyperparathyroidism (of renal origin) Is this a current diagnosis for this admission?: Yes Plan: Start calcitriol 0.25 mcg daily (6) Hypertension Qualifiers: Hypertension type: essential hypertension Qualified Code(s): I10 - Essential (primary) hypertension Is this a current diagnosis for this admission?: Yes Plan: Well-controlled on current regimen. (7) Metabolic acidosis Is this a current diagnosis for this admission?: Yes Plan: Resolved with dialysis. Discontinue sodium bicarbonate. (8) Hyperlipidemia Is this a current diagnosis for this admission?: Yes - Time Time with patient: Greater than 35 minutes
[2018-03-04] MEDS: CALCIUM CARBONATE 500 MG TABLET PO SCH ×2 (09:34→17:55)
[2018-03-04] MEDS: DOCUSATE SODIUM 100 MG CAPSULE PO SCH ×2 (09:34→17:50)
[2018-03-04] MEDS: AMLODIPINE BESYLATE 10 MG TABLET PO SCH (09:34)
[2018-03-04] MEDS: CLONIDINE HCL 0.2 MG TABLET PO SCH ×2 (09:34→22:04)
[2018-03-04 10:22] LABS: HEMATOCRIT 21.8 % (37.9-51.0); MEAN CORPUSCULAR HEMOGLOBIN 28.4 pg (27.0-33.4); MEAN CORPUSCULAR HGB CONC 34.2 g/dL (32.0-36.0); MEAN CORPUSCULAR VOLUME 83 fl (80-97); PLATELET COUNT 315 10^3/uL (150-450); RED BLOOD COUNT 2.62 10^6/uL (4.35-5.55); RED CELL DISTRIBUTION WIDTH 14.8 % (11.5-14.0); WHITE BLOOD COUNT 8.3 10^3/uL (4.0-10.5)
[2018-03-04 10:26] LABS: HEMOGLOBIN 7.5 g/dL (13.5-17.0)
[2018-03-04 10:38] LABS: ANION GAP 11 (5-19); BLOOD UREA NITROGEN 82 mg/dL (7-20); CARBON DIOXIDE 25 mmol/L (22-30); CHLORIDE 105 mmol/L (98-107); GLUCOSE 136 mg/dL (75-110); POTASSIUM 4.2 mmol/L (3.6-5.0); SODIUM 141.2 mmol/L (137-145)
[2018-03-04 10:58] LABS: CALCIUM 6.2 mg/dL (8.4-10.2)
[2018-03-04] MEDS: CALCITRIOL 0.25 MCG CAPSULE PO SCH (11:24)
[2018-03-04] MEDS: CALCIUM GLUCONATE 1000 MG/10 ML INJ IV SCH ×2 (11:25→17:55)
--- NOTE | 2018-03-04 16:53 | Operative Report ---
Operative Report DATE OF SURGERY: 03/03/18 PREOPERATIVE DIAGNOSIS: Acute renal failure requiring hemodialysis. POSTOPERATIVE DIAGNOSIS: Acute renal failure requiring hemodialysis. OPERATION: 1. Ultrasound evaluation of the right femoral vein. Insertion of temporary hemodialysis catheter via real-time access in the right femoral vein. SURGEON: AARTI WOODS [employer]ENCY DIRECTOR: None. ANESTHESIA: Local TISSUE REMOVED OR ALTERED: Not applicable. COMPLICATIONS: None. ESTIMATED BLOOD LOSS: 2 mL. INTRAOPERATIVE FINDINGS: Of a satisfactory caliber right femoral vein estimated to be about 2 cm in diameter. Satisfactory real-time access and positioning of the temporary dialysis catheter. Easy egress of blood and ingress of heparinized solution through all 3 ports. PROCEDURE: After obtaining informed consent, the patient was positioned supine at bedside. The[ left groin] and adjacent areas were prepared with chlorhexidine and draped out with sterile linen. After the universal timeout the procedure commenced. A steriley sheathed ultrasound probe was used to evaluate the [right femoral vein]. Local anesthesia was infiltrated adjacent to the probe. Access into the right femoral was accomplished using a micropuncture needle followed, by micropuncture wire and then with a micropuncture catheter. This was followed by introduction of a 0.035 guidewire, the skin opening was enlarged slightly, serially larger dilators were now placed followed by introduction of a triaysis catheter. All of these transitions were smooth. Each lumen was aspirated of blood and irrigated with heparinized solution. The catheter was now sutured to the skin using 3-0 nylon. A Bio A patch was now applied, followed by sterile dressings. Caps were placed on the end of the each of the lumens. The procedure concluded. Copies dictated operative report to Dr. Aarti Edwards MD.
[2018-03-04] MEDS ORDERED: POLYETHYLENE GLYCOL 3350 POWDER 17 GM/1 PACKET PO PRN (17:31)
--- NOTE | 2018-03-04 17:41 | PDOC PROGRESS REPORT ---
Subjective Progress Note for:: 03/04/18 Subjective:: Patient is resting comfortably in bed. He is awaiting breakfast. He has no acute complaints. 03/04/2018-patient has had a bowel movement. He is feeling better. He still has pain in the right groin from the temporary dialysis catheter. Reason For Visit: ARF ON CRF, HYPOCALCEMIA Physical Exam Vital Signs: Temp Pulse Resp BP Pulse Ox 98.8 F 102 H 16 134/78 H 99 03/04/18 16:01 03/04/18 16:01 03/04/18 16:01 03/04/18 16:01 03/04/18 16:01 Intake & Output 03/03/18 03/04/18 03/05/18 06:59 06:59 06:59 Intake Total 1500 2645 887 Output Total 200 0 175 Balance 1300 2645 712 Weight 102.9 kg 112.7 kg General appearance: PRESENT: no acute distress, cooperative, well-developed Head exam: PRESENT: atraumatic, normocephalic Respiratory exam: PRESENT: clear to auscultation missy, symmetrical, unlabored. ABSENT: rales, rhonchi, wheezes Cardiovascular exam: PRESENT: RRR, +S1, +S2 GI/Abdominal exam: PRESENT: normal bowel sounds, soft. ABSENT: guarding, rebound, tenderness Gentrourinary exam: PRESENT: other - Temporary dialysis catheter right groin Musculoskeletal exam: PRESENT: ambulatory Neurological exam: PRESENT: alert, awake, oriented to person, oriented to place , oriented to time, oriented to situation, CN II-XII grossly intact Psychiatric exam: PRESENT: appropriate affect, normal mood. ABSENT: agitated, anxious, depressed Focused psych exam: ABSENT: restlessness Results Laboratory Results: 03/04/18 09:50 03/04/18 09:50 03/04/18 03/04/18 03/04/18 06:49 06:49 06:49 WBC 8.0 RBC 2.45 L Hgb 7.0 L Hct 20.5 L MCV 84 MCH 28.7 MCHC 34.3 RDW 14.1 H Plt Count 287 Retic Count (auto) 2.00 Absolute Retic 0.049 Sodium 140.7 Potassium 4.2 Chloride 105 Carbon Dioxide 25 Anion Gap 11 BUN 84 H Creatinine 16.35 H Est GFR ( Amer) 4 L Est GFR (Non-Af Amer) 3 L Glucose 94 Calcium 6.1 L* Phosphorus 6.1 H Iron 54.1 TIBC 199 L % Saturation 27 Ferritin 108.00 Albumin 2.4 L Vitamin B12 371.0 Folate 4.24 PTH Intact 279.8 H Blood Type Antibody Screen 03/04/18 03/04/18 03/04/18 09:50 09:50 09:50 WBC 8.3 RBC 2.62 L Hgb 7.5 L Hct 21.8 L MCV 83 MCH 28.4 MCHC 34.2 RDW 14.8 H Plt Count 315 Retic Count (auto) Absolute Retic Sodium 141.2 Potassium 4.2 Chloride 105 Carbon Dioxide 25 Anion Gap 11 BUN 82 H Creatinine 16.58 H Est GFR ( Amer) 4 L Est GFR (Non-Af Amer) 3 L Glucose 136 H Calcium 6.2 L* Phosphorus Iron TIBC % Saturation Ferritin Albumin Vitamin B12 Folate PTH Intact Blood Type A POSITIVE Antibody Screen NEGATIVE 03/03/18 03/03/18 04:15 04:15 Creatine Kinase 511 H Troponin I 0.101 Impressions: Renal Ultrasound 03/02/18 00:00 IMPRESSION: Bilateral mild renal atrophy with no hydronephrosis. Chest X-Ray 03/02/18 20:47 IMPRESSION: 1. No evidence of acute intrathoracic disease. 2. Stable cardiomegaly. Assessment & Plan - Diagnosis (1) Acute on chronic renal failure Qualifiers: Chronic kidney disease stage: on chronic dialysis Is this a current diagnosis for this admission?: Yes Plan: 03/03/2018-the patient is having a try cath placed this morning for hemodialysis. Please also see nephrology note. 03/04/2018-I did speak with Dr. Lewis today. The patient is now considered end -stage with permanent need for hemodialysis. A permacath will be placed in the next several days. Dr. Edwards will then work on creating a fistula while the patient continues dialysis with the permacath. Please also see nephrology note. (2) Anemia of chronic renal failure Qualifiers: Chronic kidney disease stage: stage 5 Qualified Code(s): N18.5 - Chronic kidney disease, stage 5; D63.1 - Anemia in chronic kidney disease; D63.1 - Anemia in chronic kidney disease Is this a current diagnosis for this admission?: Yes Plan: 03/03/2018-on admission the patient's hemoglobin was 9.3. It is down below 8 today. He may require transfusion with his dialysis. 03/04/2018-the patient did receive a unit of packed cells with dialysis yesterday I believe as well as the unit today. He will receive another unit tomorrow with dialysis. (3) Hypocalcemia Is this a current diagnosis for this admission?: Yes Plan: 03/03/2018-the patient's calcium is still below 6. It does not correct into the normal range with his low albumin. I will administer an additional gram of calcium gluconate and initiate calcium carbonate therapy. 03/04/2018-the patient is on oral calcium supplement. The patient was also started on calcitriol. He has an elevated parathyroid hormone and hypocalcemia. (4) Hypertension Qualifiers: Hypertension type: essential hypertension Qualified Code(s): I10 - Essential (primary) hypertension Is this a current diagnosis for this admission?: Yes Plan: 03/03/2018-continue current cardiac meds. Blood pressure is stable this morning. 03/04/2018-patient is currently on hydralazine, Norvasc and clonidine. Continue this regimen. He seems to have reasonable blood pressure control. - Time Time Spent with patient: 15-24 minutes Medications reviewed and adjusted accordingly: Yes Anticipated discharge: Home - Plan Summary Plan Summary: I did speak with Dr. Lewis today. The patient is now considered end-stage renal disease and will need ongoing hemodialysis
[2018-03-04 19:02] LABS: ABSOLUTE BASOPHILS # (AUTO) 0.1 10^3/uL (0.0-0.2); ABSOLUTE EOSINOPHILS # (AUTO) 0.3 10^3/uL (0.0-0.6); ABSOLUTE LYMPHOCYTES (AUTO) 2.1 10^3/uL (0.5-4.7); ABSOLUTE MONOCYTES (AUTO) 0.9 10^3/uL (0.1-1.4); ABSOLUTE NEUT (AUTO) 6.2 10^3/uL (1.7-8.2); BASOPHILS % (AUTO) 0.8 % (0-2); EOSINOPHILS % (AUTO) 2.7 % (0-6); HEMATOCRIT 24.9 % (37.9-51.0); HEMOGLOBIN 8.3 g/dL (13.5-17.0); LYMPHOCYTES % (AUTO) 21.7 % (13-45); MEAN CORPUSCULAR HEMOGLOBIN 28.2 pg (27.0-33.4); MEAN CORPUSCULAR HGB CONC 33.4 g/dL (32.0-36.0); MEAN CORPUSCULAR VOLUME 84 fl (80-97); MONOCYTES % (AUTO) 9.4 % (3-13); PLATELET COUNT 313 10^3/uL (150-450); RED BLOOD COUNT 2.95 10^6/uL (4.35-5.55); RED CELL DISTRIBUTION WIDTH 14.7 % (11.5-14.0); SEGMENTED NEUTROPHILS % (AUTO) 65.4 % (42-78); TOTAL CELLS COUNTED % (AUTO) 100 %; WHITE BLOOD COUNT 9.5 10^3/uL (4.0-10.5)
[2018-03-05] MEDS: CALCIUM GLUCONATE 1000 MG/10 ML INJ IV SCH ×4 (02:38→22:43)
[2018-03-05] MEDS ORDERED: EPOETIN ALFA INJ 40000 UNIT/1 ML (RENAL) IV PRN (05:00)
[2018-03-05] MEDS ORDERED: NORMAL SALINE 1000 ML 1,000 ML IV PRN (05:00)
[2018-03-05] MEDS: HYDRALAZINE HCL 50 MG TABLET PO SCH ×3 (05:17→22:42)
[2018-03-05] MEDS: HEPARIN SOD (PORCINE) 5,000 UNIT/ML 1 ML SYRINGE SUBCUT SCH ×3 (05:17→22:43)
[2018-03-05 07:42] LABS: HEPATITS B SURFACE ANTIGEN Negative (Negative)
[2018-03-05 09:48] LABS: HEMATOCRIT 24.2 % (37.9-51.0); HEMOGLOBIN 8.1 g/dL (13.5-17.0); MEAN CORPUSCULAR HEMOGLOBIN 28.4 pg (27.0-33.4); MEAN CORPUSCULAR HGB CONC 33.6 g/dL (32.0-36.0); MEAN CORPUSCULAR VOLUME 85 fl (80-97); PLATELET COUNT 320 10^3/uL (150-450); RED BLOOD COUNT 2.87 10^6/uL (4.35-5.55); RED CELL DISTRIBUTION WIDTH 14.5 % (11.5-14.0); WHITE BLOOD COUNT 8.7 10^3/uL (4.0-10.5)
[2018-03-05] MEDS: CALCIUM CARBONATE 500 MG TABLET PO SCH ×2 (09:52→17:28)
[2018-03-05] MEDS: CLONIDINE HCL 0.2 MG TABLET PO SCH ×2 (09:52→22:43)
[2018-03-05] MEDS: DOCUSATE SODIUM 100 MG CAPSULE PO SCH ×2 (09:52→17:28)
[2018-03-05] MEDS: AMLODIPINE BESYLATE 10 MG TABLET PO SCH (09:52)
[2018-03-05] MEDS: CALCITRIOL 0.25 MCG CAPSULE PO SCH (09:52)
[2018-03-05 10:14] LABS: ANION GAP 16 (5-19); BLOOD UREA NITROGEN 87 mg/dL (7-20); CARBON DIOXIDE 22 mmol/L (22-30); CHLORIDE 102 mmol/L (98-107); GLUCOSE 143 mg/dL (75-110); POTASSIUM 4.4 mmol/L (3.6-5.0)
--- NOTE | 2018-03-05 10:22 | PDOC PROGRESS REPORT ---
Subjective Progress Note for:: 03/05/18 - seen on rounds this morning Subjective:: states he feels fine. states he had SOB for the last week. he's wondering about this dialysis plan and when he can go home. advised him that likely he will be around until next week. advised him to ask conventional mortgage underwriter today about further dialysis related questions Reason For Visit: ARF ON CRF, HYPOCALCEMIA Physical Exam Vital Signs: Temp Pulse Resp BP Pulse Ox 98.1 F 93 14 144/84 H 95 03/05/18 07:49 03/05/18 10:11 03/05/18 10:11 03/05/18 07:49 03/05/18 10:11 Intake & Output 03/04/18 03/05/18 03/06/18 06:59 06:59 06:59 Intake Total 2645 1127 Output Total 0 325 Balance 2645 802 Weight 248 lb 7.375 oz 249 lb 1.957 oz General appearance: PRESENT: no acute distress Head exam: PRESENT: atraumatic, normocephalic Eye exam: PRESENT: EOMI, PERRLA Ear exam: PRESENT: normal external ear exam Mouth exam: PRESENT: moist, tongue midline Neck exam: ABSENT: tracheal deviation Respiratory exam: PRESENT: clear to auscultation missy, symmetrical, unlabored Cardiovascular exam: PRESENT: +S1, +S2 GI/Abdominal exam: PRESENT: normal bowel sounds, soft. ABSENT: tenderness Musculoskeletal exam: ABSENT: tenderness Neurological exam: PRESENT: alert, awake, oriented to person, oriented to place , oriented to time, oriented to situation, CN II-XII grossly intact Skin exam: PRESENT: dry, warm Results Laboratory Results: 03/05/18 09:20 03/04/18 03/04/18 03/04/18 09:50 09:50 09:50 WBC 8.3 RBC 2.62 L Hgb 7.5 L Hct 21.8 L MCV 83 MCH 28.4 MCHC 34.2 RDW 14.8 H Plt Count 315 Seg Neutrophils % Lymphocytes % Monocytes % Eosinophils % Basophils % Absolute Neutrophils Absolute Lymphocytes Absolute Monocytes Absolute Eosinophils Absolute Basophils Sodium 141.2 Potassium 4.2 Chloride 105 Carbon Dioxide 25 Anion Gap 11 BUN 82 H Creatinine 16.58 H Est GFR ( Amer) 4 L Est GFR (Non-Af Amer) 3 L Glucose 136 H Calcium 6.2 L* Blood Type A POSITIVE Antibody Screen NEGATIVE 03/04/18 03/05/18 18:50 09:20 WBC 9.5 8.7 RBC 2.95 L 2.87 L Hgb 8.3 L 8.1 L Hct 24.9 L 24.2 L MCV 84 85 MCH 28.2 28.4 MCHC 33.4 33.6 RDW 14.7 H 14.5 H Plt Count 313 320 Seg Neutrophils % 65.4 Lymphocytes % 21.7 Monocytes % 9.4 Eosinophils % 2.7 Basophils % 0.8 Absolute Neutrophils 6.2 Absolute Lymphocytes 2.1 Absolute Monocytes 0.9 Absolute Eosinophils 0.3 Absolute Basophils 0.1 Sodium Potassium Chloride Carbon Dioxide Anion Gap BUN Creatinine Est GFR ( Amer) Est GFR (Non-Af Amer) Glucose Calcium Blood Type Antibody Screen 03/03/18 03/03/18 04:15 04:15 Creatine Kinase 511 H Troponin I 0.101 Impressions: Renal Ultrasound 03/02/18 00:00 IMPRESSION: Bilateral mild renal atrophy with no hydronephrosis. Chest X-Ray 03/02/18 20:47 IMPRESSION: 1. No evidence of acute intrathoracic disease. 2. Stable cardiomegaly. Assessment & Plan - Diagnosis (1) Acute on chronic renal failure Qualifiers: Chronic kidney disease stage: on chronic dialysis Is this a current diagnosis for this admission?: Yes (2) CKD stage 5 secondary to hypertension Is this a current diagnosis for this admission?: Yes (3) Combined systolic and diastolic heart failure Qualifiers: Heart failure chronicity: chronic Qualified Code(s): I50.42 - Chronic combined systolic (congestive) and diastolic (congestive) heart failure Is this a current diagnosis for this admission?: Yes (4) Hypertension Qualifiers: Hypertension type: essential hypertension Qualified Code(s): I10 - Essential (primary) hypertension Is this a current diagnosis for this admission?: Yes (5) Hypocalcemia Is this a current diagnosis for this admission?: Yes - Plan Summary Plan Summary: plan is to have dialysis today- nephrology is consulted- appreciate assistance. he's not having any other acute complaints today. c/w current medications hopefully he will have perma cath next week and be discharged
[2018-03-05 11:25] LABS: HEPATITIS B CORE AB TOT Positive (Negative)
[2018-03-05 11:26] LABS: HEPATITIS B SURFACE AB QUANT 10.2 mIU/mL (Immunity>9)
[2018-03-05] MEDS ORDERED: CALCIUM GLUCONATE 1,000 MG in DEXTROSE 5%-WATER 50 ML IV SCH (20:45)
--- NOTE | 2018-03-05 20:50 | PDOC PROGRESS REPORT ---
Subjective Progress Note for:: 03/05/18 Subjective:: I am seeing the patient on dialysis tonight. He is tolerating dialysis well with good blood pressures. He tells me that he feels better and his nausea is better. He said he is able to eat his breakfast and half of his lunch. However looks like he still feels tired since he slept all day today. His pain over the right groin area where the trialysis catheter is much better today. He has some questions regarding his dialysis schedule. Reason For Visit: ARF ON CRF, HYPOCALCEMIA Physical Exam Vital Signs: Temp Pulse Resp BP Pulse Ox 98.2 F 95 16 130/76 H 98 03/05/18 15:22 03/05/18 15:22 03/05/18 15:22 03/05/18 15:22 03/05/18 15:22 Intake & Output 03/04/18 03/05/18 03/06/18 06:59 06:59 06:59 Intake Total 2645 1127 474 Output Total 0 325 400 Balance 2645 802 74 Weight 112.7 kg 113 kg Vitals during dialysis: Blood pressure 151/83, heart rate of 93, blood flow rate of 250 mL/min, and dialysate flow rate of 600 mL/min. Exam: General appearance: PRESENT: no acute distress, cooperative, well-developed, well-nourished Head exam: PRESENT: atraumatic, normocephalic Eye exam: PRESENT: conjunctiva slightly pale, PERRLA. ABSENT: scleral icterus Neck exam: ABSENT: JVD Respiratory exam: PRESENT: Normal breath sounds. ABSENT: crackles, rales, rhonchi, unlabored, wheezes Cardiovascular exam: PRESENT: Regular rate rhythm -+S1, +S2. ABSENT: diastolic murmur, systolic murmur GI/Abdominal exam: PRESENT: normal bowel sounds, soft. ABSENT: guarding, mass, tenderness Extremities exam: ABSENT: No edema Neurological exam: PRESENT: alert, awake, oriented to person, place and time. Skin exam: PRESENT: dry, warm, Results Laboratory Results: 03/05/18 09:20 03/05/18 09:20 03/05/18 03/05/18 09:20 09:20 WBC 8.7 RBC 2.87 L Hgb 8.1 L Hct 24.2 L MCV 85 MCH 28.4 MCHC 33.6 RDW 14.5 H Plt Count 320 Sodium 140.0 Potassium 4.4 Chloride 102 Carbon Dioxide 22 Anion Gap 16 BUN 87 H Creatinine 18.51 H Est GFR ( Amer) 3 L Est GFR (Non-Af Amer) 3 L Glucose 143 H Calcium 7.0 L* 03/03/18 03/03/18 04:15 04:15 Creatine Kinase 511 H Troponin I 0.101 Impressions: Renal Ultrasound 03/02/18 00:00 IMPRESSION: Bilateral mild renal atrophy with no hydronephrosis. Chest X-Ray 03/02/18 20:47 IMPRESSION: 1. No evidence of acute intrathoracic disease. 2. Stable cardiomegaly. Assessment & Plan - Diagnosis (1) Acute on chronic renal failure Qualifiers: Chronic kidney disease stage: on chronic dialysis Is this a current diagnosis for this admission?: Yes Plan: As I mention the worsening of kidney function is either due to starting uremic symptoms due to progressive deterioration of his kidney disease which could now be at end-stage renal disease causing poor oral intake and dehydration versus merely prerenal azotemia. I favor earlier than the latter. We will prepare the patient for possible eventuality of requiring chronic hemodialysis treatment moving forward. We will plan for PermCath placement early next week depending on how his kidney function is going to respond or improve for the next few days. We will do dialysis today for 3 hours, using the patient's right femoral trialysis catheter, with 2 potassium bath, blood flow rate of 250 mL per minute , dialysate flow rate of 600 mL per minute, ultrafiltration none, no heparin and Procrit with 40,000 units during dialysis intravenously. We will monitor kidney function over the weekend. I think the patient is related to end-stage renal disease at this point but will see how his kidney function is anyways. I have consulted vascular surgeon Dr. Edwards for PermCath placement early next week. The community planner is also working on arranging outpatient dialysis treatment at the [facility]. Next dialysis will be on Thursday. (2) CKD stage 5 secondary to hypertension Is this a current diagnosis for this admission?: Yes Plan: Associated with non-nephrotic range proteinuria secondary to hypertensive nephrosclerosis due to long-term uncontrolled hypertension. As I stated above I think the patient is now with end-stage renal disease requiring chronic hemodialysis treatment. (3) Anemia of chronic renal failure Qualifiers: Chronic kidney disease stage: stage 5 Qualified Code(s): N18.5 - Chronic kidney disease, stage 5; D63.1 - Anemia in chronic kidney disease; D63.1 - Anemia in chronic kidney disease Is this a current diagnosis for this admission?: Yes Plan: Iron panel is acceptable. Patient received 1 unit of packed RBC yesterday. Hemoglobin improved so we will just give Procrit on dialysis treatment. Will check stool for occult blood which has not been collected so far. (4) Hypocalcemia Is this a current diagnosis for this admission?: Yes Plan: We will give the patient IV calcium gluconate every 8 hours until calcium is corrected. (5) Secondary hyperparathyroidism (of renal origin) Is this a current diagnosis for this admission?: Yes Plan: Start calcitriol 0.25 mcg daily (6) Hyperphosphatemia Is this a current diagnosis for this admission?: Yes Plan: Start calcium acetate 667 mg 2 capsules with meals. (7) Hypertension Qualifiers: Hypertension type: essential hypertension Qualified Code(s): I10 - Essential (primary) hypertension Is this a current diagnosis for this admission?: Yes Plan: Well-controlled on current regimen. (8) Metabolic acidosis Is this a current diagnosis for this admission?: Yes Plan: Resolved with dialysis. Discontinue sodium bicarbonate. (9) Hyperlipidemia Is this a current diagnosis for this admission?: Yes - Time Time with patient: 15-25 minutes
[2018-03-06] MEDS: HYDRALAZINE HCL 50 MG TABLET PO SCH ×3 (05:26→21:39)
[2018-03-06] MEDS: HEPARIN SOD (PORCINE) 5,000 UNIT/ML 1 ML SYRINGE SUBCUT SCH ×3 (05:26→21:38)
[2018-03-06] MEDS: CALCIUM GLUCONATE 1000 MG/10 ML INJ IV SCH ×2 (06:38→13:59)
[2018-03-06 08:40] LABS: HEMATOCRIT 24.3 % (37.9-51.0); HEMOGLOBIN 8.1 g/dL (13.5-17.0); MEAN CORPUSCULAR HEMOGLOBIN 28.4 pg (27.0-33.4); MEAN CORPUSCULAR HGB CONC 33.4 g/dL (32.0-36.0); MEAN CORPUSCULAR VOLUME 85 fl (80-97); PLATELET COUNT 306 10^3/uL (150-450); RED BLOOD COUNT 2.86 10^6/uL (4.35-5.55); RED CELL DISTRIBUTION WIDTH 14.9 % (11.5-14.0); WHITE BLOOD COUNT 10.1 10^3/uL (4.0-10.5)
[2018-03-06 09:07] LABS: ANION GAP 12 (5-19); CALCIUM 7.7 mg/dL (8.4-10.2); CARBON DIOXIDE 27 mmol/L (22-30); CHLORIDE 101 mmol/L (98-107); GLUCOSE 98 mg/dL (75-110); POTASSIUM 4.7 mmol/L (3.6-5.0); SODIUM 139.5 mmol/L (137-145)
[2018-03-06 09:52] LABS: BLOOD UREA NITROGEN 65 mg/dL (7-20)
[2018-03-06] MEDS: AMLODIPINE BESYLATE 10 MG TABLET PO SCH (10:51)
[2018-03-06] MEDS: CLONIDINE HCL 0.2 MG TABLET PO SCH ×2 (10:51→21:38)
[2018-03-06] MEDS: CALCIUM ACETATE 667 MG CAPSULE PO SCH ×3 (10:52→17:50)
[2018-03-06] MEDS: DOCUSATE SODIUM 100 MG CAPSULE PO SCH ×2 (10:52→17:50)
[2018-03-06] MEDS: CALCIUM CARBONATE 500 MG TABLET PO SCH ×2 (10:52→17:50)
[2018-03-06] MEDS: CALCITRIOL 0.25 MCG CAPSULE PO SCH (10:52)
[2018-03-06 11:37] LABS: HEPATITIS C QUANTITATION HCV Not Detected IU/mL (.)
--- NOTE | 2018-03-06 16:14 | PDOC PROGRESS REPORT ---
Subjective Progress Note for:: 03/06/18 - Seen on rounds this morning Subjective:: He tells me that his breathing a little bit better today. He did have his dialysis and was seen by nephrology. He denies any acute chest pain, shortness of breath, abdominal pain or nausea or vomiting at this time. We again discussed about his discharge which will probably be next week after his permacath is done Reason For Visit: ARF ON CRF, HYPOCALCEMIA Physical Exam Vital Signs: Temp Pulse Resp BP Pulse Ox 97.7 F 89 17 135/73 H 97 03/06/18 12:02 03/06/18 12:02 03/06/18 12:02 03/06/18 12:02 03/06/18 12:02 Intake & Output 03/05/18 03/06/18 03/07/18 06:59 06:59 06:59 Intake Total 1127 474 237 Output Total 325 525 200 Balance 802 -51 37 Weight 249 lb 1.957 oz 250 lb 7.122 oz General appearance: PRESENT: no acute distress Head exam: PRESENT: atraumatic, normocephalic Eye exam: PRESENT: EOMI. ABSENT: conjunctival injection, scleral icterus Ear exam: PRESENT: normal external ear exam Mouth exam: PRESENT: tongue midline Neck exam: ABSENT: tracheal deviation Respiratory exam: PRESENT: clear to auscultation missy, symmetrical Cardiovascular exam: PRESENT: +S1, +S2 Pulses: PRESENT: +1 pedal pulses bilateral GI/Abdominal exam: PRESENT: normal bowel sounds, soft. ABSENT: tenderness Extremities exam: ABSENT: pedal edema Neurological exam: PRESENT: alert, awake, oriented to person, oriented to place , oriented to time, oriented to situation, CN II-XII grossly intact Skin exam: PRESENT: dry, warm Results Laboratory Results: 03/06/18 08:00 03/06/18 08:00 03/06/18 03/06/18 03/06/18 05:15 08:00 08:00 WBC 10.1 RBC 2.86 L Hgb 8.1 L Hct 24.3 L MCV 85 MCH 28.4 MCHC 33.4 RDW 14.9 H Plt Count 306 Sodium 139.5 Potassium 4.7 Chloride 101 Carbon Dioxide 27 Anion Gap 12 BUN 65 H D Creatinine 14.52 H Est GFR ( Amer) 4 L Est GFR (Non-Af Amer) 4 L Glucose 98 Calcium 7.7 L Magnesium 2.1 Stool Occult Blood NEGATIVE 03/03/18 03/03/18 04:15 04:15 Creatine Kinase 511 H Troponin I 0.101 Impressions: Renal Ultrasound 03/02/18 00:00 IMPRESSION: Bilateral mild renal atrophy with no hydronephrosis. Chest X-Ray 03/02/18 20:47 IMPRESSION: 1. No evidence of acute intrathoracic disease. 2. Stable cardiomegaly. Assessment & Plan - Diagnosis (1) Acute on chronic renal failure Qualifiers: Chronic kidney disease stage: on chronic dialysis Is this a current diagnosis for this admission?: Yes (2) CKD stage 5 secondary to hypertension Is this a current diagnosis for this admission?: Yes (3) Combined systolic and diastolic heart failure Qualifiers: Heart failure chronicity: chronic Qualified Code(s): I50.42 - Chronic combined systolic (congestive) and diastolic (congestive) heart failure Is this a current diagnosis for this admission?: Yes (4) Hypertension Qualifiers: Hypertension type: essential hypertension Qualified Code(s): I10 - Essential (primary) hypertension Is this a current diagnosis for this admission?: Yes (5) Hypocalcemia Is this a current diagnosis for this admission?: Yes - Plan Summary Plan Summary: End-stage renal disease-we will started on dialysis during this admission. He tolerated well. Nephrology is consulted and I appreciate their consult. Plan is to have permacath next week and discharged home after that to follow-up with nephrology. Hypertension-continue with Norvasc, clonidine and hydralazine Hypocalcemia-currently on calcium supplements and his levels are improving. Most likely secondary to hyperphosphatemia Combined systolic and diastolic dysfunction. As noted by previous physician that he has low EF and diastolic dysfunction. I did not find any recent echocardiograms myself on the chart. I instructed the patient about this that he needs to outpatient follow-up and repeat echocardiogram. I will start him on 20 mg of Lasix at this time as I see this on his home medication list
[2018-03-07] MEDS: HEPARIN SOD (PORCINE) 5,000 UNIT/ML 1 ML SYRINGE SUBCUT SCH ×3 (05:15→21:15)
[2018-03-07] MEDS: HYDRALAZINE HCL 50 MG TABLET PO SCH ×3 (05:15→21:15)
[2018-03-07] MEDS: CALCIUM ACETATE 667 MG CAPSULE PO SCH ×3 (08:51→17:36)
[2018-03-07 09:58] LABS: MEAN CORPUSCULAR HEMOGLOBIN 28.6 pg (27.0-33.4); MEAN CORPUSCULAR HGB CONC 32.9 g/dL (32.0-36.0); MEAN CORPUSCULAR VOLUME 87 fl (80-97); PLATELET COUNT 351 10^3/uL (150-450); RED BLOOD COUNT 2.77 10^6/uL (4.35-5.55); RED CELL DISTRIBUTION WIDTH 14.5 % (11.5-14.0); WHITE BLOOD COUNT 10.8 10^3/uL (4.0-10.5)
[2018-03-07 10:00] LABS: HEMOGLOBIN 7.9 g/dL (13.5-17.0)
[2018-03-07 10:18] LABS: ANION GAP 14 (5-19); BLOOD UREA NITROGEN 69 mg/dL (7-20); CALCIUM 7.8 mg/dL (8.4-10.2); CARBON DIOXIDE 26 mmol/L (22-30); CHLORIDE 100 mmol/L (98-107); GLUCOSE 115 mg/dL (75-110); POTASSIUM 4.6 mmol/L (3.6-5.0); SODIUM 139.6 mmol/L (137-145)
[2018-03-07] MEDS: CALCITRIOL 0.25 MCG CAPSULE PO SCH (10:54)
[2018-03-07] MEDS: AMLODIPINE BESYLATE 10 MG TABLET PO SCH (10:54)
[2018-03-07] MEDS: CLONIDINE HCL 0.2 MG TABLET PO SCH ×2 (10:54→21:15)
[2018-03-07] MEDS: FUROSEMIDE 20 MG TABLET PO SCH (10:54)
[2018-03-07] MEDS: CALCIUM CARBONATE 500 MG TABLET PO SCH ×2 (10:54→17:36)
[2018-03-07] MEDS: DOCUSATE SODIUM 100 MG CAPSULE PO SCH ×2 (10:54→17:36)
--- NOTE | 2018-03-07 13:02 | PDOC PROGRESS REPORT ---
Subjective Progress Note for:: 03/07/18 Subjective:: States that he feels a little bit short of breath at times. States it has been going on for about 3-4 weeks now. States that this happens at resting or exertion. Otherwise he denies chest pain, abdominal pain, nausea or vomiting or headaches. Reason For Visit: ARF ON CRF, HYPOCALCEMIA Physical Exam Vital Signs: Temp Pulse Resp BP Pulse Ox 97.8 F 90 17 148/78 H 99 03/07/18 11:59 03/07/18 08:33 03/07/18 11:59 03/07/18 11:59 03/07/18 08:33 Intake & Output 03/06/18 03/07/18 03/08/18 06:59 06:59 06:59 Intake Total 474 827 118 Output Total 525 700 300 Balance -51 127 -182 Weight 250 lb 7.122 oz 248 lb 10.903 oz General appearance: PRESENT: no acute distress Head exam: PRESENT: atraumatic, normocephalic Eye exam: PRESENT: EOMI. ABSENT: conjunctival injection, scleral icterus Ear exam: PRESENT: normal external ear exam Mouth exam: PRESENT: moist, tongue midline Neck exam: ABSENT: tracheal deviation Respiratory exam: PRESENT: clear to auscultation missy, symmetrical. ABSENT: wheezes Cardiovascular exam: PRESENT: +S1, +S2 Pulses: PRESENT: +2 pedal pulses bilateral GI/Abdominal exam: PRESENT: normal bowel sounds, soft. ABSENT: tenderness Extremities exam: PRESENT: pedal edema - Minimal edema bilaterally Neurological exam: PRESENT: alert, awake, oriented to person, oriented to place , oriented to time, oriented to situation, CN II-XII grossly intact Skin exam: PRESENT: dry, warm Results Laboratory Results: 03/07/18 09:15 03/07/18 09:15 03/07/18 03/07/18 03/07/18 09:15 09:15 09:15 WBC 10.8 H RBC 2.77 L Hgb 7.9 L Hct 24.0 L MCV 87 MCH 28.6 MCHC 32.9 RDW 14.5 H Plt Count 351 Sodium 139.6 Potassium 4.6 Chloride 100 Carbon Dioxide 26 Anion Gap 14 BUN 69 H Creatinine 16.74 H Est GFR ( Amer) 4 L Est GFR (Non-Af Amer) 3 L Glucose 115 H Calcium 7.8 L Magnesium 2.1 12/05/18 12/05/18 04:15 04:15 Creatine Kinase 511 H Troponin I 0.101 Impressions: Renal Ultrasound 03/02/18 00:00 IMPRESSION: Bilateral mild renal atrophy with no hydronephrosis. Chest X-Ray 03/02/18 20:47 IMPRESSION: 1. No evidence of acute intrathoracic disease. 2. Stable cardiomegaly. Assessment & Plan - Diagnosis (1) Acute on chronic renal failure Qualifiers: Chronic kidney disease stage: on chronic dialysis Is this a current diagnosis for this admission?: Yes (2) CKD stage 5 secondary to hypertension Is this a current diagnosis for this admission?: Yes (3) Combined systolic and diastolic heart failure Qualifiers: Heart failure chronicity: chronic Qualified Code(s): I50.42 - Chronic combined systolic (congestive) and diastolic (congestive) heart failure Is this a current diagnosis for this admission?: Yes (4) Hypertension Qualifiers: Hypertension type: essential hypertension Qualified Code(s): I10 - Essential (primary) hypertension Is this a current diagnosis for this admission?: Yes (5) Hypocalcemia Is this a current diagnosis for this admission?: Yes (6) Anemia of chronic renal failure Qualifiers: Chronic kidney disease stage: stage 5 Qualified Code(s): N18.5 - Chronic kidney disease, stage 5; D63.1 - Anemia in chronic kidney disease; D63.1 - Anemia in chronic kidney disease Is this a current diagnosis for this admission?: Yes - Plan Summary Plan Summary: End-stage renal disease-he was started on dialysis during this admission. He tolerated well. His creatinine has gone up again. Nephrology is consulted and I appreciate their consult. Plan is to have banneracat next week and discharged home after that to follow-up with nephrology. I believe his next day of dialysis is tomorrow, Thursday. Hypertension-stable, continue with Norvasc, clonidine and hydralazine Hypocalcemia-stable, currently on calcium supplements and his levels are improving. Most likely secondary to hyperphosphatemia Shortness of breath-unclear at this time what is causing his shortness of breath while he has satting well on room air but oxygen was started just for comfort. His shortness of breath might be related to end-stage renal disease. His creatinine has gone up again this might be making his shortness of breath worse. He is also hemic and I am wondering if I should transfuse him 1 unit and help him with his shortness of breath. Chronic anemia-most likely secondary end-stage renal disease. He is status post 1 unit of packed red cells. As per nephrology he will be getting Procrit with dialysis. Today's hemoglobin is 7.9. We will check CBC in the morning again and if it is low again we may consider giving another unit of packed red cells. Combined systolic and diastolic dysfunction-I went back and reviewed his results and in 2014 his echo showed EF of 45-50% with a grade 2-4 diastolic dysfunction. given these results I have decided to get an echo tomorrow a.m. Spoke to patient today he tells me that he takes Lasix once a week. I find this very unusual and hence I started him on Lasix 20 mg daily on days that he is not on dialysis. We will see what his ejection fraction and diastolic dysfunction is before we adjust this.
[2018-03-08] MEDS ORDERED: NORMAL SALINE 1000 ML 1,000 ML IV PRN (05:00)
[2018-03-08] MEDS ORDERED: EPOETIN ALFA INJ 40000 UNIT/1 ML (RENAL) IV PRN (05:00)
[2018-03-08] MEDS: HEPARIN SOD (PORCINE) 5,000 UNIT/ML 1 ML SYRINGE SUBCUT SCH ×3 (05:23→21:37)
[2018-03-08] MEDS: HYDRALAZINE HCL 50 MG TABLET PO SCH ×3 (06:00→21:36)
[2018-03-08] MEDS ORDERED: LIDOCAINE 0.5% INJ-PF (5 MG/ML) 50 ML SDV ONE (07:34)
[2018-03-08] MEDS ORDERED: BACITRACIN INJ 50,000 UNIT VIAL ONE (07:35)
[2018-03-08] MEDS ORDERED: FENTANYL CITRATE INJ/PF 100 MCG/2 ML AMPUL ONE (07:56)
[2018-03-08] MEDS ORDERED: MIDAZOLAM 2 MG/2 ML INJ ONE (07:56)
[2018-03-08] MEDS ORDERED: OXYCODONE-ACETAMINOPHEN 5-325 MG TABLET PO ONE (08:00)
[2018-03-08] MEDS ORDERED: DIAZEPAM 5 MG TABLET PO ONE (08:00)
[2018-03-08] MEDS ORDERED: CEFAZOLIN INJ 1 GM VIAL IV ONE (08:00)
[2018-03-08] MEDS ORDERED: CEFAZOLIN INJ 1 GM VIAL ONE (08:34)
--- NOTE | 2018-03-08 09:45 | Operative Report ---
Operative Report DATE OF SURGERY: 03/03/18 PREOPERATIVE DIAGNOSIS: Acute renal failure requiring hemodialysis. POSTOPERATIVE DIAGNOSIS: Acute renal failure requiring hemodialysis. OPERATION: 1. Ultrasound evaluation of the right internal jugular vein. #2 insertion of PermCath hemodialysis catheter via real-time access in the right internal jugular vein. #3 angiogram and interpretation. SURGEON: AARTI WOODS CHARTERED FINANCIAL ANALYST: None. ANESTHESIA: Moderate Sedation TISSUE REMOVED OR ALTERED: Not applicable. COMPLICATIONS: None. ESTIMATED BLOOD LOSS: 2 mL. INTRAOPERATIVE FINDINGS: Of a satisfactory caliber right internal jugular vein estimated to be about 1.5 cm in diameter. Satisfactory real-time access and positioning of the temporary dialysis catheter. Easy egress of blood and ingress of heparinized solution through both ports. Angiogram demonstrates smooth flow of contrast through the right atrium, ventricle and pulmonary outflow tract. Post procedure right-sided chest x-ray shows no obvious sign of complication, good position of catheter. PROCEDURE: After obtaining informed consent, the patient was taken to the [Medical Service Technician] and positioned supine. The [right neck] and chest were prepared with chlorhexidine and draped out with sterile linen. After the " universal timeout", in which it was verified that the patient continued to receive antibiotic, the procedure commenced. A steriley sheathed ultrasound probe was used to evaluate the [ right internal jugular] vein. Local anesthesia was infiltrated adjacent to the probe. Access into the [right internal jugular] vein was obtained using a micropuncture needle, followed by micropuncture wire and then a micropuncture catheter. This was followed by introduction of a 0.035 guidewire the tip of which was placed down into the inferior vena cava . A 27 cm long [ permacatheter was now positioned over the chest and an exit site marked and locally anesthetized ,the catheter was placed between the 2 incisions. Proximally, the catheter was now positioned using a peel-away sheath, after dilation. Easy ingress of heparinized solution and egress of blood obtained through both ports. A completion angiogram was done by injecting contrast. The findings were as dictated. The neck incision was now closed using interrupted 3-0 PDS to the subcutaneous tissues, the catheter was anchored at the exit site using 3-0 PDS. A Biopatch device was now placed adjacent to the catheter. Dressings were applied and the procedure concluded. Exposure time: [0.1 minutes]. Exposure: 31.8 to Anjali Contrast amount: [5 mL] of [id number] low osmolality. Copies of the dictated operative report for Dr. Aarti Edwards MD.concluded. Copies of the dictated operative report for Dr. Aarti Edwards MD.
[2018-03-08 10:49] LABS: HEMOGLOBIN 8.4 g/dL (13.5-17.0); MEAN CORPUSCULAR HEMOGLOBIN 27.9 pg (27.0-33.4); MEAN CORPUSCULAR HGB CONC 32.2 g/dL (32.0-36.0); MEAN CORPUSCULAR VOLUME 87 fl (80-97); PLATELET COUNT 391 10^3/uL (150-450); RED BLOOD COUNT 3.01 10^6/uL (4.35-5.55); WHITE BLOOD COUNT 11.8 10^3/uL (4.0-10.5)
[2018-03-08 10:59] LABS: ANION GAP 15 (5-19); BLOOD UREA NITROGEN 80 mg/dL (7-20); CALCIUM 8.2 mg/dL (8.4-10.2); CARBON DIOXIDE 25 mmol/L (22-30); CHLORIDE 99 mmol/L (98-107); GLUCOSE 96 mg/dL (75-110); POTASSIUM 4.9 mmol/L (3.6-5.0); SODIUM 138.6 mmol/L (137-145)
[2018-03-08] MEDS: CALCITRIOL 0.25 MCG CAPSULE PO SCH (11:14)
[2018-03-08] MEDS: CALCIUM CARBONATE 500 MG TABLET PO SCH ×2 (11:15→18:07)
[2018-03-08] MEDS: FUROSEMIDE 20 MG TABLET PO SCH (11:15)
[2018-03-08] MEDS: CLONIDINE HCL 0.2 MG TABLET PO SCH ×2 (11:15→21:36)
[2018-03-08] MEDS: CALCIUM ACETATE 667 MG CAPSULE PO SCH ×3 (11:15→18:07)
[2018-03-08] MEDS: AMLODIPINE BESYLATE 10 MG TABLET PO SCH (11:15)
[2018-03-08] MEDS: DOCUSATE SODIUM 100 MG CAPSULE PO SCH ×2 (11:15→18:07)
--- NOTE | 2018-03-08 13:29 | RADIOLOGY REPORT (SQ) ---
EXAM DESCRIPTION: TUNNELED CENTRAL LINE; GUIDANCE FLUOROSCOPIC COMPLETED DATE/TIME: 03/08/2018 11:22 am; 03/08/2018 11:24 am REASON FOR STUDY: NEED FOR VASCULAR ACCESS COMPARISON: None. FLUOROSCOPY TIME: 10 seconds 37 digital radiographic images saved to PACS. TECHNIQUE: Intra-operative images acquired during surgical procedure to evaluate progress. NUMBER OF IMAGES: 37 digital radiographic images LIMITATIONS: None. FINDINGS: Intra procedural imaging and fluoro during placement of a right-sided central venous dialy sis catheter with the tip in the superior vena cava. Please see the operative report for further det ails IMPRESSION: Intra procedural imaging and fluoro COMMENT: Quality ID 145: Final reports for procedures using fluoroscopy that document radiation exp osure indices, or exposure time and number of fluorographic images (if radiation exposure indices are not available) Please consult full operative report of the attending physician for description of the procedure. TECHNICAL DOCUMENTATION: JOB ID: [id number] [employer]- All Rights Reserved Reading location - IP/workstation name: [email or web address]
--- NOTE | 2018-03-08 13:29 | RADIOLOGY REPORT (SQ) ---
EXAM DESCRIPTION: TUNNELED CENTRAL LINE; GUIDANCE FLUOROSCOPIC COMPLETED DATE/TIME: 03/08/2018 11:22 am; 03/08/2018 11:24 am REASON FOR STUDY: NEED FOR VASCULAR ACCESS COMPARISON: None. FLUOROSCOPY TIME: 10 seconds 37 digital radiographic images saved to PACS. TECHNIQUE: Intra-operative images acquired during surgical procedure to evaluate progress. NUMBER OF IMAGES: 37 digital radiographic images LIMITATIONS: None. FINDINGS: Intra procedural imaging and fluoro during placement of a right-sided central venous dialy sis catheter with the tip in the superior vena cava. Please see the operative report for further det ails IMPRESSION: Intra procedural imaging and fluoro COMMENT: Quality ID [id number]: Final reports for procedures using fluoroscopy that document radiation exp osure indices, or exposure time and number of fluorographic images (if radiation exposure indices are not available) Please consult full operative report of the attending physician for description of the procedure. TECHNICAL DOCUMENTATION: JOB ID: [id number] [employer]- All Rights Reserved Reading location - IP/workstation name: [email or web address]
--- NOTE | 2018-03-08 13:30 | PDOC PROGRESS REPORT ---
Subjective Progress Note for:: 03/08/18 Subjective:: I am seeing the patient during initiation of hemodialysis this afternoon. He underwent right IJ PermCath placement by Dr. Edwards. He is complaining of pain where his catheters are but more so on his right groin catheter. Other than that he denies any chest pains no shortness of breath and he said he is eating better. He is still making urine but does not seem to be as much. Reason For Visit: ARF ON CRF, HYPOCALCEMIA Physical Exam Vital Signs: Temp Pulse Resp BP Pulse Ox 97.5 F 87 18 143/76 H 98 03/08/18 11:09 03/08/18 11:09 03/08/18 11:09 03/08/18 11:09 03/08/18 11:09 Intake & Output 03/07/18 03/08/18 03/09/18 06:59 06:59 06:59 Intake Total 827 913 0 Output Total 700 800 425 Balance 127 113 -425 Weight 112.8 kg 114.1 kg Exam: General appearance: PRESENT: no acute distress, cooperative, well-developed, well-nourished Head exam: PRESENT: atraumatic, normocephalic Eye exam: PRESENT: conjunctiva pale, PERRLA. ABSENT: scleral icterus Neck exam: ABSENT: JVD Respiratory exam: PRESENT: Normal breath sounds. ABSENT: crackles, rales, rhonchi, unlabored, wheezes Cardiovascular exam: PRESENT: Regular rate rhythm -+S1, +S2. ABSENT: diastolic murmur, systolic murmur GI/Abdominal exam: PRESENT: normal bowel sounds, soft. ABSENT: guarding, mass, tenderness Extremities exam: Grade 1 bilateral lower extremity pitting edema Neurological exam: PRESENT: alert, awake, oriented to person, place and time. Skin exam: PRESENT: dry, warm, Results Laboratory Results: 03/08/18 09:58 03/08/18 09:58 03/07/18 03/08/18 03/08/18 23:52 09:58 09:58 WBC 11.8 H RBC 3.01 L Hgb 8.4 L Hct 26.0 L MCV 87 MCH 27.9 MCHC 32.2 RDW 15.0 H Plt Count 391 Sodium 138.6 Potassium 4.9 Chloride 99 Carbon Dioxide 25 Anion Gap 15 BUN 80 H Creatinine 18.36 H Est GFR ( Amer) 3 L Est GFR (Non-Af Amer) 3 L Glucose 96 Calcium 8.2 L Blood Type A POSITIVE Antibody Screen NEGATIVE 03/03/18 03/03/18 04:15 04:15 Creatine Kinase 511 H Troponin I 0.101 Impressions: Renal Ultrasound 03/02/18 00:00 IMPRESSION: Bilateral mild renal atrophy with no hydronephrosis. Chest X-Ray 03/02/18 20:47 IMPRESSION: 1. No evidence of acute intrathoracic disease. 2. Stable cardiomegaly. Assessment & Plan - Diagnosis (1) End stage renal disease Is this a current diagnosis for this admission?: Yes Plan: Initially thought to have acute on chronic kidney disease however patient's kidney function has not really recovered. 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 His level of kidney function is consistent with end-stage renal disease requiring chronic hemodialysis treatment. PermCath has been placed in preparation for him to continue dialysis as an outpatient. Awaiting for [facility] to accept patient is a dialysis patient being arranged by the airport planner. Meanwhile we will continue to support the patient with dialysis while here in hospital. We will do dialysis today for 3 hours, using the patient's newly placed right IJ PermCath, with 2 potassium bath, blood flow rate of 350 mL per minute, dialysate flow rate of 600 mL per minute, ultrafiltration 2-3 L as tolerated, no heparin and Procrit with 40,000 units during dialysis intravenously. Patient will be monitored throughout dialysis treatment and adjust treatment accordingly. Patient will also receive 1 unit of packed RBC while on dialysis. (2) Anemia of chronic renal failure Qualifiers: Chronic kidney disease stage: stage 5 Qualified Code(s): N18.5 - Chronic kidney disease, stage 5; D63.1 - Anemia in chronic kidney disease; D63.1 - Anemia in chronic kidney disease Is this a current diagnosis for this admission?: Yes Plan: We are going to transfuse 1 unit packed RBC during dialysis today. Continue Procrit on dialysis IV. We will also give 40,000 units of Procrit today. (3) Hypocalcemia Is this a current diagnosis for this admission?: Yes Plan: Much improved. (4) Secondary hyperparathyroidism (of renal origin) Is this a current diagnosis for this admission?: Yes Plan: Start calcitriol 0.25 mcg daily. We will start him on IV Hectorol when he goes to chronic dialysis facility. He does not need to be discharged on calcitriol. (5) Hyperphosphatemia Is this a current diagnosis for this admission?: Yes Plan: Start calcium acetate 667 mg 2 capsules with meals. (6) Hypertension Qualifiers: Hypertension type: essential hypertension Qualified Code(s): I10 - Essential (primary) hypertension Is this a current diagnosis for this admission?: Yes Plan: Well-controlled on current regimen. (7) Hyperlipidemia Is this a current diagnosis for this admission?: Yes - Notes Notes: From nephrology standpoint once [facility] accept the patient is a dialysis patient and then he can be discharged home. We will follow the patient at the [facility] dialysis unit and he does not need to go to our clinic for follow-up. - Time Time with patient: 15-25 minutes
--- NOTE | 2018-03-08 14:13 | PDOC PROGRESS REPORT ---
Subjective Progress Note for:: 03/08/18 Subjective:: No adverse events overnight. His only new complaint today is that he is just tired. He says his appetite is gotten better. His nurse reported that his right arm was swollen, and he is generally a bit edematous his nurse insists that it is worse than yesterday. The patient denies any chest pain or shortness of breath. Reason For Visit: ARF ON CRF, HYPOCALCEMIA Physical Exam Vital Signs: Temp Pulse Resp BP Pulse Ox 97.5 F 87 18 143/76 H 98 03/08/18 11:09 03/08/18 11:09 03/08/18 11:09 03/08/18 11:09 03/08/18 11:09 Intake & Output 03/07/18 03/08/18 03/09/18 06:59 06:59 06:59 Intake Total 827 913 0 Output Total 700 800 425 Balance 127 113 -425 Weight 112.8 kg 114.1 kg General appearance: PRESENT: no acute distress, was dozing but was arousable and interactive Respiratory exam: PRESENT: clear to auscultation missy, symmetrical. ABSENT: wheezes Cardiovascular exam: PRESENT: +S1, +S2 Pulses: PRESENT: +2 pedal pulses bilateral GI/Abdominal exam: PRESENT: normal bowel sounds, soft. ABSENT: tenderness Extremities exam: PRESENT: pedal edema - Minimal edema bilaterally, some generalized nonpitting edema bilateral upper extremities Neurological exam: PRESENT: alert, awake, oriented to person, oriented to place , oriented to time, oriented to situation Skin exam: PRESENT: dry, warm Results Laboratory Results: 03/08/18 09:58 03/08/18 09:58 03/07/18 03/08/18 03/08/18 23:52 09:58 09:58 WBC 11.8 H RBC 3.01 L Hgb 8.4 L Hct 26.0 L MCV 87 MCH 27.9 MCHC 32.2 RDW 15.0 H Plt Count 391 Sodium 138.6 Potassium 4.9 Chloride 99 Carbon Dioxide 25 Anion Gap 15 BUN 80 H Creatinine 18.36 H Est GFR ( Amer) 3 L Est GFR (Non-Af Amer) 3 L Glucose 96 Calcium 8.2 L Blood Type A POSITIVE Antibody Screen NEGATIVE 03/03/18 03/03/18 04:15 04:15 Creatine Kinase 511 H Troponin I 0.101 Impressions: Renal Ultrasound 03/02/18 00:00 IMPRESSION: Bilateral mild renal atrophy with no hydronephrosis. Chest X-Ray 03/02/18 20:47 IMPRESSION: 1. No evidence of acute intrathoracic disease. 2. Stable cardiomegaly. Central Venous Line 03/08/18 00:00 IMPRESSION: Intra procedural imaging and fluoro Guidance Fluoroscopy 03/08/18 00:00 IMPRESSION: Intra procedural imaging and fluoro Assessment & Plan - Diagnosis (1) End stage renal disease Is this a current diagnosis for this admission?: Yes Plan: His chronic kidney disease was secondary to hypertension. He had a permanent dialysis catheter placed and will have the temporary one removed. He is getting dialysis on a regular schedule. He is awaiting an outpatient dialysis chair. Nephrology is following. (2) Anemia of chronic renal failure Qualifiers: Chronic kidney disease stage: stage 5 Qualified Code(s): N18.5 - Chronic kidney disease, stage 5; D63.1 - Anemia in chronic kidney disease; D63.1 - Anemia in chronic kidney disease Is this a current diagnosis for this admission?: Yes Plan: He is getting EPO with hemodialysis and he is going to get another transfusion of PRBC today. (3) Hypertension Qualifiers: Hypertension type: essential hypertension Qualified Code(s): I10 - Essential (primary) hypertension Is this a current diagnosis for this admission?: Yes Plan: Well-controlled on current regimen. (4) Hyperphosphatemia Is this a current diagnosis for this admission?: Yes Plan: Currently on phosphorus binders. 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 It should be easier to keep his volume status balance on routine dialysis. - Time Time Spent with patient: 25-34 minutes
--- NOTE | 2018-03-08 18:20 | XCELERA REPORT ---
[address] [address] Transthoracic Echocardiogram Report Name: TERRIE ROSENBAUM Age: 57 yrs Gender: Male : 1960 Patient Status: Inpatient Patient Location: [address] [place] [address] Study Date: 03/08/2018 11:03 AM Procedure: A two-dimensional transthoracic echocardiogram with color flow and Doppler was performed. Study Quality: Poor. The study was technically adequate with some images being suboptimal in quality. Reason For Study: combined heart failure History: combined heart failure. Ordering Physician: CURT DEL ROSARIO Performed By: Laura Metcalf Interpretation Summary The left ventricle is normal in size. There is normal left ventricular wall thickness. LV EF is > than 55% Left ventricular systolic function is normal. Doppler measurements suggest normal left ventricular diastolic function The left ventricular wall motion is normal. There is no thrombus. The right ventricle is not well visualized secondary to technical limitations Right atrium not well visualized secondary to technical limitations The left atrium is mildly dilated. There is no evidence of mitral valve prolapse. There is no vegetation seen on the mitral valve. There is no mitral valve stenosis. There is a trace amount of mitral regurgitation There is no aortic valvular vegetation. There is no aortic valve stenosis There is no LVOT obstruction. No aortic regurgitation is present. There is no tricuspid stenosis. No tricuspid regurgitation. Unable to calculate RVSP due lack of TR jet. There is no pulmonic valvular stenosis. There is no pulmonic valvular regurgitation. The aortic root is not well visualized. There is no pericardial effusion. MMode/2D Measurements & Calculations IVSd: 0.92 cm LVIDd: 6.4 cm FS: 30.5 % Ao root diam: 2.7 cm LVIDs: 4.4 cm EDV(Teich): 206.4 ml Ao root area: 5.9 cm2 LVPWd: 1.2 cm ESV(Teich): 88.9 ml EF(Teich): 56.9 % Doppler Measurements & Calculations MV E max cesilia: MV dec slope: Ao V2 max: LV V1 max P.1 cm/sec 131.4 cm/sec 4.7 mmHg MV A max cesilia: 479.3 cm/sec2 Ao max PG: LV V1 max: 84.2 cm/sec MV dec time: 0.21 sec6.9 mmHg 107.9 cm/sec MV E/A: 1.2 PA V2 max: 84.4 cm/sec PA max P.8 mmHg Left Ventricle The left ventricle is normal in size. There is normal left ventricular wall thickness. LV EF is > than 55%. Left ventricular systolic function is normal. Doppler measurements suggest normal left ventricular diastolic function. The left ventricular wall motion is normal. There is no thrombus. Right Ventricle The right ventricle is not well visualized secondary to technical limitations. Atria Right atrium not well visualized secondary to technical limitations. The left atrium is mildly dilated. Mitral Valve There is no evidence of mitral valve prolapse. There is no vegetation seen on the mitral valve. There is no mitral valve stenosis. There is a trace amount of mitral regurgitation. Aortic Valve There is no aortic valvular vegetation. There is no aortic valve stenosis. There is no LVOT obstruction. No aortic regurgitation is present. Tricuspid Valve There is no tricuspid stenosis. No tricuspid regurgitation. Unable to calculate RVSP due lack of TR jet. Pulmonic Valve There is no pulmonic valvular stenosis. There is no pulmonic valvular regurgitation. Great Vessels The aortic root is not well visualized. Effusions There is no pericardial effusion. : CURT DEL ROSARIO > Jumana García
[2018-03-09 05:01] LABS: HEMATOCRIT 25.3 % (37.9-51.0); HEMOGLOBIN 8.3 g/dL (13.5-17.0); MEAN CORPUSCULAR HEMOGLOBIN 28.4 pg (27.0-33.4); MEAN CORPUSCULAR HGB CONC 32.9 g/dL (32.0-36.0); MEAN CORPUSCULAR VOLUME 86 fl (80-97); PLATELET COUNT 322 10^3/uL (150-450); RED BLOOD COUNT 2.93 10^6/uL (4.35-5.55); RED CELL DISTRIBUTION WIDTH 14.5 % (11.5-14.0); WHITE BLOOD COUNT 9.9 10^3/uL (4.0-10.5)
[2018-03-09 05:19] LABS: ANION GAP 10 (5-19); CARBON DIOXIDE 30 mmol/L (22-30); CHLORIDE 99 mmol/L (98-107); GLUCOSE 145 mg/dL (75-110); POTASSIUM 4.7 mmol/L (3.6-5.0); SODIUM 138.9 mmol/L (137-145)
[2018-03-09] MEDS: HEPARIN SOD (PORCINE) 5,000 UNIT/ML 1 ML SYRINGE SUBCUT SCH ×3 (05:24→21:53)
[2018-03-09] MEDS: HYDRALAZINE HCL 50 MG TABLET PO SCH ×3 (05:24→21:53)
[2018-03-09 05:50] LABS: BLOOD UREA NITROGEN 51 mg/dL (7-20)
[2018-03-09] MEDS: CALCIUM ACETATE 667 MG CAPSULE PO SCH ×3 (09:14→17:23)
[2018-03-09] MEDS: AMLODIPINE BESYLATE 10 MG TABLET PO SCH (09:15)
[2018-03-09] MEDS: DOCUSATE SODIUM 100 MG CAPSULE PO SCH ×2 (09:15→17:23)
[2018-03-09] MEDS: FUROSEMIDE 20 MG TABLET PO SCH (09:15)
[2018-03-09] MEDS: CALCIUM CARBONATE 500 MG TABLET PO SCH ×2 (09:15→17:25)
[2018-03-09] MEDS: CLONIDINE HCL 0.2 MG TABLET PO SCH ×2 (09:16→21:53)
[2018-03-09] MEDS: CALCITRIOL 0.25 MCG CAPSULE PO SCH (09:22)
--- NOTE | 2018-03-09 12:36 | RADIOLOGY REPORT (SQ) ---
EXAM DESCRIPTION: VENOUS UNILATERAL UPPER COMPLETED DATE/TIME: 03/09/2018 11:12 am REASON FOR STUDY: right upper extremity edema COMPARISON: None. TECHNIQUE: Dynamic and static gilbert scale and color images acquired of the right arm venous system. S elected spectral images acquired with additional compression and augmentation maneuvers. The contrala teral subclavian vein and internal jugular vein were also imaged. Images stored on PACS. LIMITATIONS: None. FINDINGS: INTERNAL JUGULAR VEIN: Normal phasicity, compression, augmentation. No visualized echogeni c material on gilbert scale. No defects on color images. Comparison opposite side normal. SUBCLAVIAN VEIN: Normal compression, augmentation. No visualized echogenic material on gilbert scale. No defects on color images. AXILLARY VEIN: Normal compression, augmentation. No visualized echogenic material on gilbert scale. No d efects on color images. BRACHIAL VEIN: Normal compression, augmentation. No visualized echogenic material on gilbert scale. No d efects on color images. BASILIC VEIN: Normal compression, augmentation. No visualized echogenic material on gilbert scale. No de fects on color images. CEPHALIC VEIN: Small amount of thrombus in the cephalic vein at the antecubital fossa. OTHER: No other significant finding. CONTRALATERAL SUBCLAVIAN VEIN AND INTERNAL JUGULAR VEIN: Normal phasicity, compression and augmentation. No visualized echogenic material on gilbert scale. No de fects on color images. IMPRESSION: 1. Small amount of thrombus in the cephalic vein at the antecubital fossa. 2. No evidence of deep venous thrombosis right arm. COMMENT: 1. The patient's nurse was notified on 03/09/2018. TECHNICAL DOCUMENTATION: JOB ID: [id number] [employer]- All Rights Reserved Reading location - IP/workstation name: [email or web address]
--- NOTE | 2018-03-09 17:33 | PDOC PROGRESS REPORT ---
Subjective Progress Note for:: 03/09/18 Subjective:: No adverse events overnight. No new complaints. Vital signs been stable. He has been very fatigued and somnolent today. His breathing has been comfortable. No chest pain. Reason For Visit: ARF ON CRF, HYPOCALCEMIA Physical Exam Vital Signs: Temp Pulse Resp BP Pulse Ox 98.5 F 88 16 138/75 H 100 03/09/18 15:20 03/09/18 15:20 03/09/18 15:20 03/09/18 15:20 03/09/18 15:20 Intake & Output 03/08/18 03/09/18 03/10/18 06:59 06:59 06:59 Intake Total 913 300 177 Output Total 800 3250 300 Balance 113 -2950 -123 Weight 114.1 kg 111.1 kg General appearance: PRESENT: no acute distress, was dozing but was arousable and interactive Respiratory exam: PRESENT: clear to auscultation missy, symmetrical. ABSENT: wheezes Cardiovascular exam: PRESENT: +S1, +S2 Pulses: PRESENT: +2 pedal pulses bilateral GI/Abdominal exam: PRESENT: normal bowel sounds, soft. ABSENT: tenderness Extremities exam: PRESENT: pedal edema - Minimal edema bilaterally, some generalized nonpitting edema bilateral upper extremities Neurological exam: PRESENT: alert, awake, oriented to person, oriented to place , oriented to time, oriented to situation Skin exam: PRESENT: dry, warm Results Laboratory Results: 03/09/18 04:45 03/09/18 04:45 03/09/18 03/09/18 04:45 04:45 WBC 9.9 RBC 2.93 L Hgb 8.3 L Hct 25.3 L MCV 86 MCH 28.4 MCHC 32.9 RDW 14.5 H Plt Count 322 Sodium 138.9 Potassium 4.7 Chloride 99 Carbon Dioxide 30 Anion Gap 10 BUN 51 H D Creatinine 13.95 H Est GFR ( Amer) 4 L Est GFR (Non-Af Amer) 4 L Glucose 145 H Calcium 8.0 L 03/03/18 03/03/18 04:15 04:15 Creatine Kinase 511 H Troponin I 0.101 Impressions: Renal Ultrasound 03/02/18 00:00 IMPRESSION: Bilateral mild renal atrophy with no hydronephrosis. Chest X-Ray 03/02/18 20:47 IMPRESSION: 1. No evidence of acute intrathoracic disease. 2. Stable cardiomegaly. Central Venous Line 03/08/18 00:00 IMPRESSION: Intra procedural imaging and fluoro Guidance Fluoroscopy 03/08/18 00:00 IMPRESSION: Intra procedural imaging and fluoro Venous Doppler Study 03/09/18 00:00 IMPRESSION: 1. Small amount of thrombus in the cephalic vein at the antecubital fossa. 2. No evidence of deep venous thrombosis right arm. Assessment & Plan - Diagnosis (1) End stage renal disease Is this a current diagnosis for this admission?: Yes Plan: His chronic kidney disease was secondary to hypertension. He had a permanent dialysis catheter placed and will have the temporary one removed. He is getting dialysis on a regular schedule. He is awaiting an outpatient dialysis chair. Nephrology is following. (2) Anemia of chronic renal failure Qualifiers: Chronic kidney disease stage: stage 5 Qualified Code(s): N18.5 - Chronic kidney disease, stage 5; D63.1 - Anemia in chronic kidney disease; D63.1 - Anemia in chronic kidney disease Is this a current diagnosis for this admission?: Yes Plan: He is getting EPO with hemodialysis and he get prn blood transfusions. (3) Hypertension Qualifiers: Hypertension type: essential hypertension Qualified Code(s): I10 - Essential (primary) hypertension Is this a current diagnosis for this admission?: Yes Plan: Well-controlled on current regimen. (4) Hyperphosphatemia Is this a current diagnosis for this admission?: Yes Plan: Currently on phosphorus binders. 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 It should be easier to keep his volume status balance on routine dialysis. - Time Time Spent with patient: 15-24 minutes
[2018-03-10] MEDS ORDERED: EPOETIN ALFA INJ 40000 UNIT/1 ML (RENAL) IV PRN (05:00)
[2018-03-10] MEDS ORDERED: NORMAL SALINE 1000 ML 1,000 ML IV PRN (05:00)
[2018-03-10] MEDS: HEPARIN SOD (PORCINE) 5,000 UNIT/ML 1 ML SYRINGE SUBCUT SCH ×2 (05:40→13:38)
[2018-03-10] MEDS: HYDRALAZINE HCL 50 MG TABLET PO SCH ×2 (05:41→13:33)
[2018-03-10 09:24] LABS: HEMATOCRIT 25.2 % (37.9-51.0); HEMOGLOBIN 8.3 g/dL (13.5-17.0); MEAN CORPUSCULAR HEMOGLOBIN 28.7 pg (27.0-33.4); MEAN CORPUSCULAR HGB CONC 32.8 g/dL (32.0-36.0); MEAN CORPUSCULAR VOLUME 88 fl (80-97); PLATELET COUNT 324 10^3/uL (150-450); RED BLOOD COUNT 2.88 10^6/uL (4.35-5.55); WHITE BLOOD COUNT 9.4 10^3/uL (4.0-10.5)
[2018-03-10 09:51] LABS: ANION GAP 12 (5-19); BLOOD UREA NITROGEN 60 mg/dL (7-20); CALCIUM 7.6 mg/dL (8.4-10.2); CARBON DIOXIDE 28 mmol/L (22-30); CHLORIDE 98 mmol/L (98-107); GLUCOSE 101 mg/dL (75-110); POTASSIUM 4.7 mmol/L (3.6-5.0); SODIUM 137.5 mmol/L (137-145)
[2018-03-10] MEDS: CALCIUM ACETATE 667 MG CAPSULE PO SCH ×3 (11:26→17:45)
[2018-03-10] MEDS: DOCUSATE SODIUM 100 MG CAPSULE PO SCH ×2 (11:27→17:46)
[2018-03-10] MEDS: FUROSEMIDE 20 MG TABLET PO SCH (13:33)
[2018-03-10] MEDS: AMLODIPINE BESYLATE 10 MG TABLET PO SCH (13:35)
[2018-03-10] MEDS: CALCIUM CARBONATE 500 MG TABLET PO SCH ×2 (13:35→17:45)
[2018-03-10] MEDS: CLONIDINE HCL 0.2 MG TABLET PO SCH (13:35)
[2018-03-10] MEDS: CALCITRIOL 0.25 MCG CAPSULE PO SCH (13:46)
--- NOTE | 2018-03-10 15:45 | PDOC DISCHARGE SUMMARY ---
General - Admit/Disc Date/PCP Admission Date/Primary Care Provider: 03/02/18 21:01 Discharge Date: 03/10/18 - Discharge Diagnosis (1) End stage renal disease Is this a current diagnosis for this admission?: Yes Summary: He required dialysis when he was admitted now has a permanent dialysis catheter and will be getting dialysis as an outpatient. He will be following up with nephrology. (2) Anemia of chronic renal failure Is this a current diagnosis for this admission?: Yes Summary: He required a couple of PRBC transfusions and was getting EPO with dialysis. This will likely continue as an outpatient. (3) Hypertension Is this a current diagnosis for this admission?: Yes Summary: He had long-standing uncontrolled hypertension was noncompliant with his regimen , this led to his chronic kidney disease and now ultimately to end-stage renal disease. His blood pressure has been much better controlled on the regimen we have had him on here. He has been given prescriptions for blood pressure medications. Once we got his volume status corrected, he really did not take a whole lot of medicine to keep his blood pressure under control. (4) Hyperphosphatemia Is this a current diagnosis for this admission?: Yes Summary: He was given a prescription for PhosLo which he will continue as an outpatient. 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 His volume was much more manageable with dialysis. - Additional Information Resuscitation Status: Full Code Discharge Diet: Cardiac Discharge Activity: Activity As Tolerated Prescriptions: Amlodipine Besylate [Norvasc 10 mg Tablet] 10 mg PO DAILY #30 tablet Calcium Acetate [Phoslo 667 mg Capsule] 1,334 mg PO MEALS #180 capsule Home Medications: Clonidine HCl [Catapres 0.2 mg Tablet] 0.2 mg PO Q12 03/02/18 Hydralazine HCl [Apresoline 50 mg Tablet] 100 mg PO Q8 03/02/18 Amlodipine Besylate [Norvasc 10 mg Tablet] 10 mg PO DAILY #30 tablet 03/10/18 Calcium Acetate [Phoslo 667 mg Capsule] 1,334 mg PO MEALS #180 capsule 03/10/18 Furosemide [Lasix 20 mg Tablet] 20 mg PO DAILY tablet 03/10/18 History of Present Illness History of Present Illness: TERRIE ROSENBAUM is a 57 year old male with a past medical history of poorly controlled hypertension and stage IV chronic kidney disease. She presents shortly after taking his medications feeling lightheaded he seeks evaluation in the emergency room. He admits missing several weeks of medications. In the emergency room is found to have a blood pressure of 180/102, a BUN of 147 and creatinine of 25.8 and hypocalcemia. Patient denies recent change in p.o. intake or urine output and he is otherwise felt well. In the emergency room he receives an IV fluid challenge and referred to the hospitalist for admission. He denies chest pain, shortness of breath, nausea vomiting Hospital Course Hospital Course: He required a few dialysis treatments and his creatinine did not show any indication that his kidney function was recovering. He was still able to make some urine. He required phosphorus binders for hyperphosphatemia we will continue this as an outpatient. We also got his blood pressure under much better control. He was here for several days while we were trying to line up a dialysis chair for him as an outpatient. Once this was accomplished she was able to be discharged. He will follow-up with nephrology as an outpatient. Physical Exam Vital Signs: Temp Pulse Resp BP Pulse Ox 98.1 F 106 H 18 149/68 H 95 03/10/18 12:33 03/10/18 14:00 03/10/18 12:33 03/10/18 12:33 03/10/18 12:33 Intake & Output 03/09/18 03/10/18 03/11/18 06:59 06:59 06:59 Intake Total 300 177 177 Output Total 3450 409 8525 Balance -3150 -723 -2298 Weight 111.1 kg 111.2 kg General appearance: PRESENT: no acute distress, more alert and interactive today Respiratory exam: PRESENT: clear to auscultation missy, symmetrical. ABSENT: wheezes Cardiovascular exam: PRESENT: +S1, +S2 Pulses: PRESENT: +2 pedal pulses bilateral GI/Abdominal exam: PRESENT: normal bowel sounds, soft. ABSENT: tenderness Extremities exam: PRESENT: pedal edema - Minimal edema bilaterally, some generalized nonpitting edema bilateral upper extremities Neurological exam: PRESENT: alert, awake, oriented to person, oriented to place , oriented to time, oriented to situation Skin exam: PRESENT: dry, warm Results Laboratory Results: 03/10/18 08:25 03/10/18 08:25 03/10/18 03/10/18 08:25 08:25 WBC 9.4 RBC 2.88 L Hgb 8.3 L Hct 25.2 L MCV 88 MCH 28.7 MCHC 32.8 RDW 15.0 H Plt Count 324 Sodium 137.5 Potassium 4.7 Chloride 98 Carbon Dioxide 28 Anion Gap 12 BUN 60 H Creatinine 15.39 H Est GFR ( Amer) 4 L Est GFR (Non-Af Amer) 3 L Glucose 101 Calcium 7.6 L 03/03/18 03/03/18 04:15 04:15 Creatine Kinase 511 H Troponin I 0.101 Impressions: Renal Ultrasound 03/02/18 00:00 IMPRESSION: Bilateral mild renal atrophy with no hydronephrosis. Chest X-Ray 03/02/18 20:47 IMPRESSION: 1. No evidence of acute intrathoracic disease. 2. Stable cardiomegaly. Central Venous Line 03/08/18 00:00 IMPRESSION: Intra procedural imaging and fluoro Guidance Fluoroscopy 03/08/18 00:00 IMPRESSION: Intra procedural imaging and fluoro Venous Doppler Study 03/09/18 00:00 IMPRESSION: 1. Small amount of thrombus in the cephalic vein at the antecubital fossa. 2. No evidence of deep venous thrombosis right arm. Qualifiers - * PATIENT BEING DISCHARGED WITH ANY OF THE FOLLOWING DIAGNOSIS: No
[2018-03-10 17:34] VITALS: BP 142/78
--- NOTE | 2018-03-10 20:33 | PDOC PROGRESS REPORT ---
Subjective Progress Note for:: 03/10/18 Subjective:: I saw him on dialysis at around 8:45 AM today. He was looking much much better. He continues to make some urine. He complains of occasional shortness of breath but not currently. He was tolerating dialysis fairly well. He does not complain of pain anymore on catheter site. His right arm was a little swollen but Doppler did not show any significant DVT. This was also the site of a previous IV line. Reason For Visit: ARF ON CRF, HYPOCALCEMIA Physical Exam Vital Signs: Temp Pulse Resp BP Pulse Ox 98.0 F 94 19 142/78 H 94 03/10/18 17:31 03/10/18 17:31 03/10/18 17:31 03/10/18 17:31 03/10/18 17:31 Intake & Output 03/09/18 03/10/18 03/11/18 06:59 06:59 06:59 Intake Total 300 177 177 Output Total 3450 900 9305 Balance -9279 -883 -1632 Weight 111.1 kg 111.2 kg 111.2 kg Vitals during dialysis: Blood pressure 138/82, blood flow rate of 301/min, dialysate flow rate of 800, per minute and oxygen saturation of 98% Exam: General appearance: PRESENT: no acute distress, cooperative, well-developed, well-nourished Head exam: PRESENT: atraumatic, normocephalic Eye exam: PRESENT: conjunctiva pink, PERRLA. ABSENT: scleral icterus Neck exam: ABSENT: JVD Respiratory exam: PRESENT: Normal breath sounds. ABSENT: crackles, rales, rhonchi, unlabored, wheezes Cardiovascular exam: PRESENT: Regular rate rhythm -+S1, +S2. ABSENT: diastolic murmur, systolic murmur GI/Abdominal exam: PRESENT: normal bowel sounds, soft. ABSENT: guarding, mass, tenderness Extremities exam: Decreased grade 1 bilateral lower extremity edema, mild right arm edema Neurological exam: PRESENT: alert, awake, oriented to person, place and time. Skin exam: PRESENT: dry, warm, Results Laboratory Results: 03/10/18 08:25 03/10/18 08:25 03/10/18 03/10/18 08:25 08:25 WBC 9.4 RBC 2.88 L Hgb 8.3 L Hct 25.2 L MCV 88 MCH 28.7 MCHC 32.8 RDW 15.0 H Plt Count 324 Sodium 137.5 Potassium 4.7 Chloride 98 Carbon Dioxide 28 Anion Gap 12 BUN 60 H Creatinine 15.39 H Est GFR ( Amer) 4 L Est GFR (Non-Af Amer) 3 L Glucose 101 Calcium 7.6 L 03/03/18 03/03/18 04:15 04:15 Creatine Kinase 511 H Troponin I 0.101 Impressions: Renal Ultrasound 03/02/18 00:00 IMPRESSION: Bilateral mild renal atrophy with no hydronephrosis. Chest X-Ray 03/02/18 20:47 IMPRESSION: 1. No evidence of acute intrathoracic disease. 2. Stable cardiomegaly. Central Venous Line 03/08/18 00:00 IMPRESSION: Intra procedural imaging and fluoro Guidance Fluoroscopy 03/08/18 00:00 IMPRESSION: Intra procedural imaging and fluoro Venous Doppler Study 03/09/18 00:00 IMPRESSION: 1. Small amount of thrombus in the cephalic vein at the antecubital fossa. 2. No evidence of deep venous thrombosis right arm. Assessment & Plan - Diagnosis (1) End stage renal disease Is this a current diagnosis for this admission?: Yes Plan: We did dialysis today for 3 hours, using the patient's right IJ PermCath, with 2 potassium bath, blood flow rate of 300 mL per minute, dialysate flow rate of 800 mL per minute, ultrafiltration 2 L as tolerated, no heparin and Procrit with 40,000 units during dialysis intravenously. Patient tolerated dialysis well without any problems. I been in communication with Selvin in the planner internship today regarding his outpatient chronic dialysis treatment arrangement. [facility] him as a patient despite having no insurance. Patient was instructed to go to [facility] in your liver at 3 PM on Thursday for his next dialysis treatment. From nephrology standpoint patient is stable to go home provided that he continues to have his outpatient hemodialysis 3 times a week. (2) Anemia of chronic renal failure Qualifiers: Chronic kidney disease stage: stage 5 Qualified Code(s): N18.5 - Chronic kidney disease, stage 5; D63.1 - Anemia in chronic kidney disease; D63.1 - Anemia in chronic kidney disease Is this a current diagnosis for this admission?: Yes Plan: Continue Procrit on dialysis IV. We will also give 40,000 units of Procrit today. (3) Hypocalcemia Is this a current diagnosis for this admission?: Yes Plan: Much improved. Continue calcium supplements as well as calcium acetate for phosphorus binders. (4) Secondary hyperparathyroidism (of renal origin) Is this a current diagnosis for this admission?: Yes Plan: Start calcitriol 0.25 mcg daily. We will start him on IV Hectorol when he goes to chronic dialysis facility. He does not need to be discharged on calcitriol. (5) Hyperphosphatemia Is this a current diagnosis for this admission?: Yes Plan: Start calcium acetate 667 mg 2 capsules with meals. (6) Hypertension Qualifiers: Hypertension type: essential hypertension Qualified Code(s): I10 - Essential (primary) hypertension Is this a current diagnosis for this admission?: Yes Plan: Well-controlled on current regimen. (7) Hyperlipidemia Is this a current diagnosis for this admission?: Yes - Notes Notes: Since patient was already accepted as a patient at the [facility] [place], patient can be safely discharged home today. Patient instructed to go to [facility] on Thursday as stated above. - Time Time with patient: 15-25 minutes
== END 2018-03-10 18:06 | disposition home health service (06) | DRG 291 ==
LOC: ER 16:18 → EH 21:01 → 3N 22:37
PROVIDERS: ADMIT Internal Medicine; ATTEND Internal Medicine
PROC: 0JH63XZ Insertion of Tunneled Vascular Access Device into Chest Subcutaneous Tissue and Fascia, Percutaneous Approach (ICD-10-PCS; principal; 2018-03-03)
PROC: 06H033Z Insertion of Infusion Device into Inferior Vena Cava, Percutaneous Approach (ICD-10-PCS; 2018-03-03)
PROC: B549ZZA Ultrasonography of Inferior Vena Cava, Guidance (ICD-10-PCS; 2018-03-03)
PROC: 5A1D70Z Performance of Urinary Filtration, Intermittent, Less than 6 Hours Per Day (ICD-10-PCS; 2018-03-03)
PROC: 06HM33Z Insertion of Infusion Device into Right Femoral Vein, Percutaneous Approach (ICD-10-PCS; 2018-03-03)
PROC: B54BZZA Ultrasonography of Right Lower Extremity Veins, Guidance (ICD-10-PCS; 2018-03-03)
PROC: 30243N1 Transfusion of Nonautologous Red Blood Cells into Central Vein, Percutaneous Approach (ICD-10-PCS; 2018-03-04)
PROC: 5A1D70Z Performance of Urinary Filtration, Intermittent, Less than 6 Hours Per Day (ICD-10-PCS; 2018-03-05)
PROC: 5A1D70Z Performance of Urinary Filtration, Intermittent, Less than 6 Hours Per Day (ICD-10-PCS; 2018-03-08)
PROC: 30243N1 Transfusion of Nonautologous Red Blood Cells into Central Vein, Percutaneous Approach (ICD-10-PCS; 2018-03-08)
PROC: 5A1D70Z Performance of Urinary Filtration, Intermittent, Less than 6 Hours Per Day (ICD-10-PCS; 2018-03-09)
PROC: 5A1D70Z Performance of Urinary Filtration, Intermittent, Less than 6 Hours Per Day (ICD-10-PCS; 2018-03-10)
DX: I13.2 Hypertensive heart and chronic kidney disease with heart failure and with stage 5 chronic kidney disease, or end stage renal disease (principal); N18.6 End stage renal disease; N17.9 Acute kidney failure, unspecified; M62.82 Rhabdomyolysis; E87.2 Acidosis; I50.42 Chronic combined systolic (congestive) and diastolic (congestive) heart failure; N18.4 Chronic kidney disease, stage 4 (severe); N25.81 Secondary hyperparathyroidism of renal origin; E83.39 Other disorders of phosphorus metabolism; E83.51 Hypocalcemia; D63.1 Anemia in chronic kidney disease; T46.5X6A Underdosing of other antihypertensive drugs, initial encounter; E86.0 Dehydration; E78.5 Hyperlipidemia, unspecified; Z99.2 Dependence on renal dialysis; Z91.15 Patient's noncompliance with renal dialysis; Z82.49 Family history of ischemic heart disease and other diseases of the circulatory system
CPT/HCPCS: 36415; 36430; 36556; 36558; 71045; 76770; 76937; 77001; 80048; 80053; 80061; 80069; 81001; 82272; 82550; 82553; 82570; 82607; 82728; 82746; 83540; 83550; 83735; 83970; 84156; 84484; 85025; 85027; 85045; 86317; 86704; 86850; 86900; 86901; 86920; 87340; 87522; 93005; 93010; 93306; 93971; 96365; 99291; C1752; J0610; J0690; J1644; J2250; J3010; J3490; J7030; J7040; P9016; Q4081

== ENCOUNTER 2018-03-29 06:55 | Day surgery (SDC) | payer SELFPAY ==
[~2018-03-29 06:55] MED LIST: CEFAZOLIN 1 GM/D5W RTU 1 GM/50 ML RTUPB IV ONE; CEFAZOLIN 1 GM/D5W RTU 1 GM/50 ML RTUPB IV PRN; DEXTROSE 5%-1/2 NORMAL SALINE 1,000 ML IV PRN; DIAZEPAM 5 MG TABLET ONE; DIAZEPAM 5 MG TABLET PO PRN; OXYCODONE-ACETAMINOPHEN 5-325 MG TABLET ONE; OXYCODONE-ACETAMINOPHEN 5-325 MG TABLET PO PRN
[2018-03-29] MEDS ORDERED: LIDOCAINE 0.5% INJ-PF (5 MG/ML) 50 ML SDV ONE ×2 (07:23→09:02)
[2018-03-29] MEDS ORDERED: BACITRACIN INJ 50,000 UNIT VIAL ONE (07:24)
[2018-03-29] MEDS ORDERED: FENTANYL CITRATE INJ/PF 100 MCG/2 ML AMPUL ONE (07:26)
[2018-03-29] MEDS ORDERED: MIDAZOLAM 2 MG/2 ML INJ ONE (07:26)
--- NOTE | 2018-03-29 07:41 | RADIOLOGY REPORT (SQ) ---
EXAM DESCRIPTION: XR CHEST 1 VIEW COMPLETED DATE/TME: 03/29/2018 07:00 CLINICAL HISTORY: preop dialysis access COMPARISON: None. FINDINGS: Single frontal view of the chest. Cardiomegaly. Right IJ tunneled hemodialysis catheter. Low lung volumes. No consolidation, pneumothorax, or pleural effusion. Degenerative change of the spine. Upper abdominal soft tissues are unremarkable. IMPRESSION: 1. No acute pulmonary process identified.
[2018-03-29 08:03] LABS: ABSOLUTE BASOPHILS # (AUTO) 0.1 10^3/uL (0.0-0.2); ABSOLUTE EOSINOPHILS # (AUTO) 0.3 10^3/uL (0.0-0.6); ABSOLUTE LYMPHOCYTES (AUTO) 1.3 10^3/uL (0.5-4.7); ABSOLUTE MONOCYTES (AUTO) 0.6 10^3/uL (0.1-1.4); ABSOLUTE NEUT (AUTO) 4.6 10^3/uL (1.7-8.2); BASOPHILS % (AUTO) 1.4 % (0-2); EOSINOPHILS % (AUTO) 3.9 % (0-6); HEMATOCRIT 25.5 % (37.9-51.0); HEMOGLOBIN 8.3 g/dL (13.5-17.0); LYMPHOCYTES % (AUTO) 18.2 % (13-45); MEAN CORPUSCULAR HEMOGLOBIN 26.8 pg (27.0-33.4); MEAN CORPUSCULAR HGB CONC 32.7 g/dL (32.0-36.0); MONOCYTES % (AUTO) 8.9 % (3-13); PLATELET COUNT 501 10^3/uL (150-450); RED BLOOD COUNT 3.11 10^6/uL (4.35-5.55); RED CELL DISTRIBUTION WIDTH 16.3 % (11.5-14.0); SEGMENTED NEUTROPHILS % (AUTO) 67.6 % (42-78); TOTAL CELLS COUNTED % (AUTO) 100 %; WHITE BLOOD COUNT 6.9 10^3/uL (4.0-10.5)
[2018-03-29 08:22] LABS: ANION GAP 14 (5-19); BLOOD UREA NITROGEN 48 mg/dL (7-20); CARBON DIOXIDE 23 mmol/L (22-30); CHLORIDE 106 mmol/L (98-107); GLUCOSE 111 mg/dL (75-110); POTASSIUM 4.3 mmol/L (3.6-5.0); SODIUM 142.5 mmol/L (137-145)
[2018-03-29 08:26] LABS: MEAN CORPUSCULAR VOLUME 82 fl (80-97)
--- NOTE | 2018-03-29 09:36 | PDOC H&P ---
General Chief Complaint: The patient presents with a permacatheter which is clotting off and not functioning well. - Diagnosis (1) End stage renal disease Is this a Current Diagnosis?: Yes - Current Medications/Allergies Home Medications: Clonidine HCl [Catapres 0.2 mg Tablet] 0.2 mg PO Q12 03/02/18 Hydralazine HCl [Apresoline 50 mg Tablet] 100 mg PO Q8 03/02/18 Lisinopril [Prinivil 10 mg Tablet] 10 mg PO DAILY 03/26/18 Potassium Chloride [Klor-Con M10] 10 meq PO DAILY 03/26/18 Allergies/Adverse Reactions: No Known Allergies Allergy (Verified 03/29/18 07:23) Past Medical History Cardiac Medical History: Reports: Hypertension Denies: Coronary Artery Disease, Myocardial Infarction Pulmonary Medical History: Denies: Asthma, Bronchitis, Chronic Obstructive Pulmonary Disease (COPD), Pneumonia Neurological Medical History: Denies: Seizures Musculoskeltal Medical History: Denies: Arthritis Psychiatric Medical History: Denies: Depression Hematology: Denies: Anemia Family History Family History: CAD, Hypertension Parental Family History Reviewed: No Children Family History Reviewed: No Sibling(s) Family History Reviewed.: No Social History Smoking Status: Never Smoker Frequency of Alcohol Use: Rare Hx Recreational Drug Use: No Drugs: None Hx Prescription Drug Abuse: No Physical Exam Vital Signs: Temp Pulse Resp BP Pulse Ox 98.2 F 97 18 183/107 H 99 03/29/18 07:00 03/29/18 07:00 03/29/18 07:00 03/29/18 07:00 03/29/18 07:00 Intake & Output 03/28/18 03/29/18 03/30/18 06:59 06:59 06:59 Weight 107.048 kg Additional comments: Constitutional: Well-developed well-nourished -[place]ian gentleman. No apparent acute distress. Eyes: Mucous membranes pink and moist, pupils equal and reactive to light. Conjunctiva normal. Cornea normal. ENT: Hearing grossly normal. External pinna normal to inspection. Teeth intact. Tongue normal to inspection. Chest: Right-sided PermCath in place. Cardiac: Heart sounds normal. Respiratory breath sounds are present bilaterally, normal. Normal respiratory effort. Psychiatric: Judgment, memory, insight seem normal. Mood is pleasant and appropriate. Extremities: Upper extremities show normal range of movement. Pulses present noted to the radial arteries. Capillary refill normal. No cyanosis noted. No muscle wasting noted. . Impression/Plan Plan: For PermCath exchange trying to position the tip more optimally ideally in the mid right atrial pool. The procedure, its risks, benefits, expected outcome and alternatives are understood by the patient and he wishes to
--- NOTE | 2018-03-29 09:40 | Discharge Summary ---
Discharge Summary (SDC) - Discharge Final Diagnosis: #1 malfunctioning PermCath catheter. 2. End-stage renal disease on hemodialysis. 3. Hypertension. Date of Surgery: 03/29/18 Discharge Date: 03/29/18 Condition: Fair Treatment or Instructions: Discharge home [after recovery per ASU criteria]. Diet , [renal],as tolerated, when fully awake advance as tolerated. Activities within moderation encouraged. Follow up in my office by appointment in about [1 week]. Call for appointment. Leave wounds [covered], [keep clean and dry, per dialysis protocol. Hold of on school/work [until evaluation in office]. Meds per med rec. May shower [in 48 hrs], [try to keep operated area as dry as possible]. Discharge Diet: Other (Comments) - Renal. Respiratory Treatments at Home: Deep Breathing/Coughing Discharge Activity: Activity As Tolerated Report the Following to Your Physician Immediately: Shortness of Breath
--- NOTE | 2018-03-29 09:45 | Operative Report ---
Operative Report DATE OF SURGERY: 03/29/18 PREOPERATIVE DIAGNOSIS: 1. Malfunctioning PermCath catheter. 2. End-stage re nal disease on hemodialysis. 3. Hypertension. POSTOPERATIVE DIAGNOSIS: 1. Malfunctioning PermCath catheter. 2. End-stage renal disease on hemodialysis. 3. Hypertension. OPERATION: 1. Insertion of new PermCath catheter via right old PermCath cutdown site. 2. Angiogram and interpretation. 3. Removal of old PermCath catheter. SURGEON: AARTI WOODS METAL STAMPER: None. ANESTHESIA: Moderate Sedation TISSUE REMOVED OR ALTERED: Not applicable. COMPLICATIONS: None. ESTIMATED BLOOD LOSS: 5 mL. INTRAOPERATIVE FINDINGS: Of a well founded right internal jugular based permacatheter. Of satisfactory access into the right atrial pool via the right internal jugular vein. Satisfactory egress of blood and ingress of heparinized solution through both ports of the new catheter. Catheter angiogram demonstrates the tip of the catheter down in the distal portion of the right atrial pool. Satisfactory removal of the catheter, including the portion in the chest wall. PROCEDURE: After obtaining informed consent, the patient was taken to the [Donor Relations Coordinator] and positioned supine. The [right neck] and chest and catheter, were prepared with chlorhexidine and draped out with sterile linen. After the " universal timeout", in which it was verified that the patient continued to receive antibiotic, the procedure commenced. . Local anesthesia was infiltrated as the next scar site. Access into the [right internal jugular] vein was obtained by incision and dissecting down to the cath . The catheter was partially removed and transected. The proximal portion was removed over 0.035 guidewire. Removed part of the catheter was discarded off the field. This was followed by introduction of a 0.035 guidewire the tip of which was placed down into the inferior vena cava . An introducer was now passed over the guidewire. A 27 cm long PermCath was now positioned over the chest and an exit site marked and locally anesthetized ,the catheter was placed between the 2 incisions. Proximally, the catheter was now positioned using a peel-away sheath. Easy ingress of heparinized solution and egress of blood obtained through both ports. A completion angiogram was done by injecting contrast. The findings were as dictated. The neck incision was now closed using interrupted 3-0 PDS to the subcutaneous tissues, the catheter was anchored at the exit site using 3-0 PDS. A Biopatch device was now placed adjacent to the catheter. Dressings were now placed. Local anesthesia was now infiltrated in the old exit site and adjacent to the c uff. The catheter and cuff were dissected away and removed and discarded off the field. Dressings were applied and the procedure concluded. Exposure time: [0. 1 minutes]. Exposure: 21.45 Anjali gilbert. Contrast amount: [5 mL] of [id number] low osmolality. Copies of the dictated operative report for Dr. Aarti Edwards MD.concluded. Copies of the dictated operative report for Dr. Aarti Edwards MD.
[2018-03-29 10:40] VITALS: BP 178/109
--- NOTE | 2018-03-29 12:30 | RADIOLOGY REPORT (SQ) ---
EXAM DESCRIPTION: TUNNELED LINE REPLACEMENT COMPLETED DATE/TIME: 03/29/2018 11:44 am REASON FOR STUDY: T82.858A N18.9 CHRONIC KIDNEY DISEASE, UNSPECIFIED COMPARISON: None. FLUOROSCOPY TIME: Less than 1 second. 21 images saved to PACS. TECHNIQUE: Intra-operative images acquired during surgical procedure to evaluate progress. NUMBER OF IMAGES: 21 images. LIMITATIONS: None. FINDINGS: Images of the chest acquired during catheter placement. IMPRESSION: IMAGE(S) OBTAINED DURING PROCEDURE. COMMENT: Quality ID [id number]: Final reports for procedures using fluoroscopy that document radiation exp osure indices, or exposure time and number of fluorographic images (if radiation exposure indices are not available) Please consult full operative report of the attending physician for description of the procedure. TECHNICAL DOCUMENTATION: JOB ID: [id number] [employer]- All Rights Reserved Reading location - IP/workstation name: [email or web address]
== END 2018-03-29 10:30 | disposition home or self-care (01) ==
LOC: CCL 06:55
PROVIDERS: ATTEND Surgery
DX: I12.0 Hypertensive chronic kidney disease with stage 5 chronic kidney disease or end stage renal disease (principal); N18.6 End stage renal disease; Z99.2 Dependence on renal dialysis; Z79.899 Other long term (current) drug therapy; Z95.828 Presence of other vascular implants and grafts
CPT/HCPCS: 36415; 85025; 80048; 36581; 77001; 71045; C1752; J2250; J3490 ×2; J0690; J3010; J1644

== ENCOUNTER 2018-04-06 07:32 | Day surgery (SDC) | payer SELFPAY ==
[~2018-04-06 07:32] MED LIST changes: -CEFAZOLIN 1 GM/D5W RTU 1 GM/50 ML RTUPB IV ONE; -CEFAZOLIN 1 GM/D5W RTU 1 GM/50 ML RTUPB IV PRN; -DEXTROSE 5%-1/2 NORMAL SALINE 1,000 ML IV PRN; -DIAZEPAM 5 MG TABLET ONE; -OXYCODONE-ACETAMINOPHEN 5-325 MG TABLET ONE
[2018-04-06] MEDS ORDERED: OXYCODONE-ACETAMINOPHEN 5-325 MG TABLET ONE (07:57)
[2018-04-06] MEDS ORDERED: DIAZEPAM 5 MG TABLET ONE (07:58)
--- NOTE | 2018-04-06 10:06 | RADIOLOGY REPORT (SQ) ---
EXAM DESCRIPTION: CHEST SINGLE VIEW COMPLETED DATE/TIME: 04/06/2018 9:57 am REASON FOR STUDY: PREOP N18.9 CHRONIC KIDNEY DISEASE, UNSPECIFIED COMPARISON: 03/29/2018. NUMBER OF VIEWS: One view. TECHNIQUE: Single frontal radiographic view of the chest acquired. LIMITATIONS: None. FINDINGS: LUNGS AND PLEURA: No opacities, masses or pneumothorax. No pleural effusion. MEDIASTINUM AND HILAR STRUCTURES: No masses. Contour normal. HEART AND VASCULAR STRUCTURES: Heart enlarged without failure. Normal vasculature. BONES: No acute findings. HARDWARE: Multi lumen catheter. OTHER: No other significant finding. IMPRESSION: STABLE CARDIOMEGALY. NO ACUTE FINDINGS. TECHNICAL DOCUMENTATION: JOB ID: [id number] [employer]- All Rights Reserved Reading location - IP/workstation name: [email or web address]
[2018-04-06] MEDS ORDERED: FENTANYL CITRATE INJ/PF 100 MCG/2 ML AMPUL ONE (10:30)
[2018-04-06] MEDS ORDERED: MIDAZOLAM 2 MG/2 ML INJ ONE (10:30)
[2018-04-06] MEDS ORDERED: BACITRACIN INJ 50,000 UNIT VIAL ONE (10:31)
[2018-04-06] MEDS ORDERED: LIDOCAINE 0.5% INJ-PF (5 MG/ML) 50 ML SDV ONE (10:33)
[2018-04-06] MEDS ORDERED: CEFAZOLIN INJ 1 GM VIAL ONE (10:38)
[2018-04-06] MEDS ORDERED: ALTEPLASE INJ 2 MG VIAL (CATH CLEARANCE) ONE (11:07)
--- NOTE | 2018-04-06 11:48 | PDOC H&P ---
General Chief Complaint: This patient had replacement of a catheter 1-2 weeks ago and is back because of malfunction of the catheter. Clots are noted about 4 minutes before the end of the dialysis. - Current Medications/Allergies Home Medications: Clonidine HCl [Catapres 0.2 mg Tablet] 0.2 mg PO Q12 03/02/18 Hydralazine HCl [Apresoline 50 mg Tablet] 100 mg PO Q8 03/02/18 Lisinopril [Prinivil 10 mg Tablet] 10 mg PO DAILY 03/26/18 Potassium Chloride [Klor-Con M10] 10 meq PO DAILY 03/26/18 Allergies/Adverse Reactions: No Known Allergies Allergy (Verified 03/29/18 07:23) Past Medical History Cardiac Medical History: Reports: Hypertension Denies: Coronary Artery Disease, Myocardial Infarction Pulmonary Medical History: Denies: Asthma, Bronchitis, Chronic Obstructive Pulmonary Disease (COPD), Pneumonia Neurological Medical History: Denies: Seizures Musculoskeltal Medical History: Denies: Arthritis Psychiatric Medical History: Denies: Depression Hematology: Denies: Anemia Family History Family History: CAD, Hypertension Parental Family History Reviewed: No Children Family History Reviewed: No Sibling(s) Family History Reviewed.: No Social History Smoking Status: Current Every Day Smoker Frequency of Alcohol Use: Rare Hx Recreational Drug Use: No Drugs: None Hx Prescription Drug Abuse: No Physical Exam Vital Signs: Temp Pulse Resp BP Pulse Ox 98.3 F 88 10 L 139/74 H 98 04/06/18 08:40 04/06/18 08:40 04/06/18 08:40 04/06/18 08:40 04/06/18 08:40 Intake & Output 04/05/18 04/06/18 04/07/18 06:59 06:59 06:59 Weight 97.522 kg Additional comments: Constitutional: Well-developed well-nourished -[place] gentleman, increased body mass index. No apparent acute distress. Eyes: Mucous membranes pink and moist, pupils equal and reactive to light. Conjunctiva normal. Cornea normal. ENT: Hearing grossly normal. External pinna normal to inspection. Teeth intact. Tongue normal to inspection. Chest: Right-sided PermCath in place. Respiratory: Normal respiratory effort. Psychiatric: Judgment, memory, insight seem normal. Mood is pleasant and appropriate. Extremities: Upper extremities show normal range of movement. Pulses present noted to the radial arteries. Capillary refill normal. No cyanosis noted. No muscle wasting noted. Impression/Plan Plan: This patient with a malfunctioning permacatheter is to have a catheter angiogram and possible replacement. The procedure, its risks, benefits, expected outcome and alternatives are familiar to the patient.
--- NOTE | 2018-04-06 12:13 | Discharge Summary ---
Discharge Summary (SDC) - Discharge Final Diagnosis: #1 malfunctioning PermCath catheter. #2 end-stage renal disease on hemodialysis. 3. Hypertension. Date of Surgery: 04/06/18 Discharge Date: 04/06/18 Condition: Fair Treatment or Instructions: Discharge home [after recovery per ASU criteria]. Diet , [renal],as tolerated, when fully awake advance as tolerated. Activities within moderation encouraged. Follow up in my office by appointment in about [1 week]. Call for appointment. Leave wounds [covered], [keep clean and dry, until hemodialysis]. Meds per med rec. May shower [in 48 hrs], [try to keep operated area as dry as possible]. Referrals: SOFIE PHILLIP PA-C [Primary Care Provider] - Discharge Diet: Other (Comments) - Renal. Respiratory Treatments at Home: Deep Breathing/Coughing Discharge Activity: Activity As Tolerated Report the Following to Your Physician Immediately: Shortness of Breath, Unusual Bleeding
--- NOTE | 2018-04-06 12:17 | RADIOLOGY REPORT (SQ) ---
EXAM DESCRIPTION: FLUORO OF CENTRAL LINE COMPLETED DATE/TIME: 04/06/2018 11:30 am REASON FOR STUDY: T82.858A N18.9 CHRONIC KIDNEY DISEASE, UNSPECIFIED COMPARISON: None. FLUOROSCOPY TIME: Less than 1 second. 3 images saved to PACS. TECHNIQUE: Intra-operative images acquired during surgical procedure to evaluate progress. NUMBER OF IMAGES: 3 images. LIMITATIONS: None. FINDINGS: Images of the chest acquired during catheter evaluation. IMPRESSION: IMAGE(S) OBTAINED DURING PROCEDURE. COMMENT: Quality ID [id number]: Final reports for procedures using fluoroscopy that document radiation exp osure indices, or exposure time and number of fluorographic images (if radiation exposure indices are not available) Please consult full operative report of the attending physician for description of the procedure. TECHNICAL DOCUMENTATION: JOB ID: [id number] [employer]- All Rights Reserved Reading location - IP/workstation name: [facility]
--- NOTE | 2018-04-06 12:18 | Operative Report ---
Operative Report DATE OF SURGERY: 04/06/18 PREOPERATIVE DIAGNOSIS: #1 malfunctioning PermCath catheter. #2 end-stage renal disease on hemodialysis. 3. Hypertension. POSTOPERATIVE DIAGNOSIS: #1 malfunctioning PermCath catheter. #2 end-stage renal disease on hemodialysis. 3. Hypertension. OPERATION: 1. Catheter angiogram. 2. Cathflo instillation. 3. Angiogram and interpretation. SURGEON: AARTI WOODS TOW BOAT CAPTAIN: None. ANESTHESIA: Moderate Sedation - None TISSUE REMOVED OR ALTERED: Not applicable. COMPLICATIONS: None. ESTIMATED BLOOD LOSS: 2 mL. INTRAOPERATIVE FINDINGS: Of a well founded right internal jugular vein base permacatheter. Conventional x-ray shows the catheter to be high in the right atrium with the proximal port possibly in the superior vena cava. With the patient supine on the Dehydrator Operator table the tip of the catheter was actually far down in the atrium possibly impacting the atrial wall. There is a great difference between the erect and supine position as to the catheter position relationship to the heart. The right atrial pool in this patient is on the small size. Other observations are that there was a tendency for fluid to go backwards in the distal ports with the port open. This suggests quite low central pressures. Also noted is slight swelling of the right upper extremity. Actual angiogram demonstrated smooth flow of contrast through the right atrium, ventricle and pulmonary outflow tract. Given these findings replacement of the catheter is probably unhelpful. Instead we will recommend increasing the use of heparin and also the using the supine position during dialysis. Also it may be helpful to reduce the amount of fluid removed towards the end of the procedure. An AV fistula is planned. In the meanwhile we will certainly replace this catheter if necessary in the future. I believe the above-mentioned methods will be important initially. PROCEDURE: After obtaining informed consent, the patient was taken to the catheter lab and positioned supine. The right upper chest and catheter were prepared with chlorhexidine and draped out with sterile linen. After the " universal timeout", in which it was verified that the patient received antibiotic, the procedure commenced. Both lumens were accessed , in turn, , findings as above above. Angiogram done. At this point aspiration was attempted through both ports. It was successful to the blue, venous port and as easily to the arteria l, red port. Both ports were now flushed with about a 2.5 mL of Cath Flow solution. The remainder was left to dissolve any residual clot within the lumens of the catheter. A Biopatch device was now placed adjacent to the catheter. Dressings were applied and the procedure concluded. Copies of the dictated operative report for Dr. Aarti Edwards MD.
[2018-04-06 13:01] VITALS: BP 138/79
== END 2018-04-06 13:23 | disposition home or self-care (01) ==
LOC: CCL 07:32
PROVIDERS: ATTEND Surgery
DX: I12.0 Hypertensive chronic kidney disease with stage 5 chronic kidney disease or end stage renal disease (principal); N18.6 End stage renal disease; Z99.2 Dependence on renal dialysis; T82.858A Stenosis of other vascular prosthetic devices, implants and grafts, initial encounter; Y83.2 Surgical operation with anastomosis, bypass or graft as the cause of abnormal reaction of the patient, or of later complication, without mention of misadventure at the time of the procedure; Z79.899 Other long term (current) drug therapy; Z01.818 Encounter for other preprocedural examination
CPT/HCPCS: 36415; 84132; 75898; 71045; C1769; J2997; J2250; J3490 ×2; J0690; J3010; J1644; J1642

== ENCOUNTER 2018-04-27 05:41 | Day surgery (SDC) | payer MEDICAID ==
[2018-04-23 10:09] LABS: HEMATOCRIT 28.6 % (37.9-51.0); HEMOGLOBIN 9.1 g/dL (13.5-17.0); MEAN CORPUSCULAR HEMOGLOBIN 26.4 pg (27.0-33.4); MEAN CORPUSCULAR HGB CONC 31.9 g/dL (32.0-36.0); MEAN CORPUSCULAR VOLUME 83 fl (80-97); PLATELET COUNT 367 10^3/uL (150-450); RED BLOOD COUNT 3.45 10^6/uL (4.35-5.55); RED CELL DISTRIBUTION WIDTH 19.3 % (11.5-14.0); WHITE BLOOD COUNT 6.6 10^3/uL (4.0-10.5)
[2018-04-23 12:07] LABS: ANION GAP 9 (5-19); BLOOD UREA NITROGEN 26 mg/dL (7-20); CALCIUM 7.8 mg/dL (8.4-10.2); CARBON DIOXIDE 29 mmol/L (22-30); CHLORIDE 102 mmol/L (98-107); GLUCOSE 97 mg/dL (75-110); POTASSIUM 4.3 mmol/L (3.6-5.0); SODIUM 140.1 mmol/L (137-145)
[~2018-04-27 05:41] MED LIST changes: +CEFAZOLIN 1 GM/D5W RTU 1 GM/50 ML RTUPB IV ONE; +CEFAZOLIN 1 GM/D5W RTU 1 GM/50 ML RTUPB IV PRN; -DIAZEPAM 5 MG TABLET PO PRN; +LIDOCAINE 0.5% INJ-PF (5 MG/ML) 50 ML SDV SUBCUT PRN; +NORMAL SALINE 1000 ML (RENAL PATIENTS) IV PRN; -OXYCODONE-ACETAMINOPHEN 5-325 MG TABLET PO PRN
[2018-04-27] MEDS ORDERED: BUPIVACAINE HCL 0.25 % INJ/PF (2.5 MG/1 ML) 30 ML VIAL ONE (06:29)
[2018-04-27] MEDS ORDERED: LIDOCAINE 1% INJ-PF (10 MG/ML) 30 ML SDV ONE (06:29)
[2018-04-27] MEDS ORDERED: LIDOCAINE 0.5% INJ-PF (5 MG/ML) 50 ML SDV ONE (06:29)
[2018-04-27] MEDS ORDERED: BACITRACIN INJ 50,000 UNIT VIAL ONE (06:29)
[2018-04-27] MEDS ORDERED: HEPARIN SOD (PORCINE) 1,000 UNIT/ML 10 ML VIAL ONE ×2 (06:29→07:13)
[2018-04-27] MEDS ORDERED: LIDOCAINE 2% INJ-PF (20 MG/ML) 10 ML AMPUL ONE (06:30)
[2018-04-27] MEDS ORDERED: MIDAZOLAM 2 MG/2 ML INJ ONE (06:31)
[2018-04-27] MEDS ORDERED: ONDANSETRON HCL INJ/PF 4 MG/2 ML SDV ONE (06:31)
[2018-04-27] MEDS ORDERED: FENTANYL CITRATE INJ/PF 100 MCG/2 ML AMPUL ONE (06:31)
[2018-04-27] MEDS ORDERED: PROPOFOL INJ 200 MG/20 ML VIAL IV ONE (06:31)
[2018-04-27] MEDS ORDERED: NITROGLYCERIN/D5W 0 MG/0 ML RTUINJ IV ONE (07:05)
[2018-04-27 07:14] LABS: POTASSIUM 4.1 mmol/L (3.6-5.0)
[2018-04-27] MEDS ORDERED: FENTANYL CITRATE INJ/PF 100 MCG/2 ML AMPUL IV PRN ×3 (08:12)
[2018-04-27] MEDS ORDERED: DIPHENHYDRAMINE HCL 50 MG/ML VIAL IV PRN (08:12)
[2018-04-27] MEDS ORDERED: MEPERIDINE HCL/PF INJ 25 MG/1 ML DISP.SYRIN IV PRN (08:12)
[2018-04-27] MEDS ORDERED: MORPHINE SULFATE 10 MG/ML INJ IV PRN (08:12)
[2018-04-27] MEDS ORDERED: ONDANSETRON HCL INJ/PF 4 MG/2 ML SDV IV PRN (08:12)
[2018-04-27] MEDS ORDERED: PROMETHAZINE HCL INJ 25 MG/1 ML VIAL IV PRN ×2 (08:12)
--- NOTE | 2018-04-27 09:18 | Discharge Summary ---
Discharge Summary (SDC) - Discharge Final Diagnosis: This patient has end-stage renal disease on hemodialysis. Via right PermCath. He is in today to start a fistula with the hope of establishing and transitioning away from the PermCath. Date of Surgery: 04/27/18 Discharge Date: 04/27/18 Condition: Fair Treatment or Instructions: Discharge home [after recovery per ASU criteria]. Diet , [renal],as tolerated, when fully awake advance as tolerated. Activities within moderation encouraged. Follow up in my office by appointment in about [1 week]. Call for appointment. Leave wounds [covered], [keep clean and dry, until office visit in 1 week]. Hold of on school/work [until evaluation in office]. Meds per med rec. Percocet. May shower [in 48 hrs], [try to keep operated area as dry as possible]. Prescriptions: Oxycodone HCl/Acetaminophen [Percocet 5-325 mg Tablet] 1 tab PO ASDIR PRN #15 tab PRN Reason: Referrals: SOFIE PHILLIP PA-C [Primary Care Provider] - Discharge Diet: Other (Comments) - Renal. Respiratory Treatments at Home: Deep Breathing/Coughing Discharge Activity: Activity As Tolerated Report the Following to Your Physician Immediately: Shortness of Breath, Unusual Bleeding
--- NOTE | 2018-04-27 09:25 | Operative Report ---
Operative Report DATE OF SURGERY: 04/27/18 PREOPERATIVE DIAGNOSIS: 1. PermCath in place. 2. End-stage renal disease on hemodialysis. 3. Hypertension. POSTOPERATIVE DIAGNOSIS: 1. PermCath in place. 2. End-stage renal disease on hemodialysis. 3. Hypertension. OPERATION: Insertion of transposed radiocephalic fistula right forearm. SURGEON: AARTI WOODS BOTTOM IRONER: None. ANESTHESIA: LMAC TISSUE REMOVED OR ALTERED: Not applicable. COMPLICATIONS: None. ESTIMATED BLOOD LOSS: 5 mL. INTRAOPERATIVE FINDINGS: Of a robust vein with a thick wall. Estimated to be 3.5 mm internal diameter on dilatation. The artery was relatively disease-free unsatisfactory caliber estimated to be 3 mm internal. Satisfactory anastomosis with good Doppler signals. Somewhat challenging to hear the bruit on external auscultation at the end of the procedure. PROCEDURE: Operative Report PROCEDURE: After reviewing the procedure with the patient, he was taken to the operating room. The patient was sedated and the right upper extremity] prepared with chlorhexidine and draped out with sterile linen. After the "" universal timeout", in which it was verified that the patient [received IV antibiotics] the procedure commenced. The sterilely sheathed ultrasound probe was used to evaluate the left venous and arterial systems, pertinent to the previously done vein mapping. Local anesthesia was infiltrated and a longitudinal incision made over the low forearm, over the most distal reasonable looking radial artery. Dissection proceeded through the subcutaneous tissues down to the radial artery. This was dissected out proximally and distally for about 2 cm. . Rubber loops were placed on either end. The cephalic vein was now dissected out for a distance of about 6 cm. The patient was given 2500 units of heparin intravenously. The cephalic vein was transected and irrigated with heparinized solution. The distal branches were clipped Coronary dilators were accepted [up to 2 mm]. The artery was controlled proximally and distally with rubber loops. The vein was transposed into the arterial incision using a hemostat. An arteriotomy approximately 1.2 cm in length was made, the artery was irrigated proximally and distally with heparinized solution. The transected vein was now spatulated [using fishmouth patch technique, it was then anastomosed end to end to side into the radial artery. This was done using a continuous suture of 6-0 Prolene. Controls of the fistula were now released and it was analyzed using a Doppler probe. Hemostasis was secured once optimal function was assured, the wound was irrigated with antibiotic containing solution and closed. Closure was done using interrupted 3-0 PDS for the subcutaneous tissues. The skin was closed, in either wound, using a continuous subcutaneous suture of 4-0 Monocryl which was reinforced with Steri-Strips over benzoin. I then left the operative field and returned with a stethoscope covered with a sterile Tegaderm dressing. This allowed external auscultation of the fistula. Auscultation was borderline, it was decided to accept the results. The procedure was concluded by applying a dressing over the surgical site. DICTATING PHYSICIAN: AARTI CONTE M.D.
[2018-04-27 14:47] VITALS: BP 139/89
== END 2018-04-27 14:00 | disposition home or self-care (01) ==
LOC: OROUT 05:41
PROVIDERS: ATTEND Surgery
DX: I12.0 Hypertensive chronic kidney disease with stage 5 chronic kidney disease or end stage renal disease (principal); N18.6 End stage renal disease; Z99.2 Dependence on renal dialysis; Z79.899 Other long term (current) drug therapy
CPT/HCPCS: 36821; 36415 ×2; 82947; 84132; 85027; 80048; J2250; J3490 ×4; J0690; J3010; J1644; J2405; S0020; J2704; 1844

== ENCOUNTER 2019-01-17 07:05 | Day surgery (SDC) | payer MEDICARE, MEDICAID ==
[2019-01-17] MEDS ORDERED: OXYCODONE-ACETAMINOPHEN 5-325 MG TABLET ONE (08:40)
[2019-01-17] MEDS ORDERED: DIAZEPAM 5 MG TABLET ONE (08:40)
[2019-01-17 08:50] LABS: HEMATOCRIT 34.9 % (37.9-51.0); HEMOGLOBIN 11.3 g/dL (13.5-17.0); MEAN CORPUSCULAR HEMOGLOBIN 30.1 pg (27.0-33.4); MEAN CORPUSCULAR HGB CONC 32.5 g/dL (32.0-36.0); MEAN CORPUSCULAR VOLUME 93 fl (80-97); PLATELET COUNT 316 10^3/uL (150-450); RED BLOOD COUNT 3.77 10^6/uL (4.35-5.55); RED CELL DISTRIBUTION WIDTH 18.9 % (11.5-14.0); WHITE BLOOD COUNT 5.5 10^3/uL (4.0-10.5)
[2019-01-17] MEDS ORDERED: MIDAZOLAM 2 MG/2 ML INJ ONE (08:58)
[2019-01-17] MEDS ORDERED: HEPARIN SOD (PORCINE) 5,000 UNIT/ML 1 ML VIAL ONE (08:58)
[2019-01-17] MEDS ORDERED: FENTANYL CITRATE INJ/PF 100 MCG/2 ML AMPUL ONE (08:58)
[2019-01-17] MEDS ORDERED: LIDOCAINE 0.5% INJ-PF (5 MG/ML) 50 ML SDV ONE (08:58)
[2019-01-17 09:07] LABS: ANION GAP 14 (5-19); BLOOD UREA NITROGEN 48 mg/dL (7-20); CALCIUM 7.4 mg/dL (8.4-10.2); CARBON DIOXIDE 27 mmol/L (22-30); CHLORIDE 98 mmol/L (98-107); GLUCOSE 100 mg/dL (75-110); POTASSIUM 4.5 mmol/L (3.6-5.0)
--- NOTE | 2019-01-17 10:55 | PDOC H&P ---
General Chief Complaint: The patient is referred across for angiogram of his AV fistula for malfunction. - Diagnosis (1) Dialysis AV fistula malfunction Is this a Current Diagnosis?: Yes (2) End stage renal disease Is this a Current Diagnosis?: Yes (3) Hypertension Is this a Current Diagnosis?: Yes - Current Medications/Allergies Home Medications: Clonidine HCl [Catapres 0.2 mg Tablet] 0.2 mg PO Q12 03/02/18 Hydralazine HCl [Apresoline 50 mg Tablet] 100 mg PO Q8 03/02/18 Allergies/Adverse Reactions: No Known Allergies Allergy (Verified 01/17/19 08:54) Past Medical History Cardiac Medical History: Reports: Hypertension Denies: Coronary Artery Disease, Myocardial Infarction Pulmonary Medical History: Denies: Asthma, Bronchitis, Chronic Obstructive Pulmonary Disease (COPD), Pneumonia Neurological Medical History: Denies: Seizures Musculoskeltal Medical History: Denies: Arthritis Psychiatric Medical History: Denies: Depression Hematology: Denies: Anemia Family History Family History: CAD, Hypertension Parental Family History Reviewed: No Children Family History Reviewed: No Sibling(s) Family History Reviewed.: No Social History Smoking Status: Never Smoker Frequency of Alcohol Use: Rare Hx Recreational Drug Use: No Drugs: None Hx Prescription Drug Abuse: No Physical Exam Vital Signs: Temp Pulse Resp BP Pulse Ox 97.3 F 66 14 172/102 H 94 01/17/19 10:15 01/17/19 10:15 01/17/19 10:15 01/17/19 10:15 01/17/19 10:15 Intake & Output 01/16/19 01/17/19 01/18/19 06:59 06:59 06:59 Weight 95.45 kg Additional comments: Constitutional: Well-developed well-nourished -Mac[place] gentleman. No apparent acute distress. Eyes: Mucous membranes pink and moist, pupils equal and reactive to light. Conjunctiva normal. Cornea normal. ENT: Hearing grossly normal. External pinna normal to inspection. Tongue normal to inspection. Cardiac: Heart sounds normal. Respiratory: Normal respiratory effort. Skin: Normal to inspection. No ulcers, normal turgor. Psychiatric: Judgment, memory, insight seem normal. Mood is pleasant and appropriate. Extremities: Upper extremities show normal range of movement. Pulses present noted to the radial arteries. Capillary refill normal. No cyanosis noted. No muscle wasting noted. Right radiocephalic fistula noted. Neurovascular: No apparent tremors, gait normal. Sensation grossly intact. Hearing grossly normal. Vison grossly intact. Impression/Plan Plan: In this patient with a malfunctioning fistula angiogram is to be done. The hope is to identify and correct any lesions.
--- NOTE | 2019-01-17 10:57 | Discharge Summary ---
Discharge Summary (SDC) - Discharge Final Diagnosis: #1 malfunctioning AV fistula, right radiocephalic. 2. End-stage renal disease. 3. Hypertension. Date of Surgery: 01/17/19 Discharge Date: 01/17/19 Condition: Good Treatment or Instructions: Discharge home [after recovery per ASU criteria]. Diet , [renal],as tolerated, when fully awake advance as tolerated. Activities within moderation encouraged. Follow up in my office by appointment in about [1 week]. Call for appointment. Leave wounds [covered], [keep clean and dry, until hemodialysis. Follow-up in office by appointment in about 1 month. May shower [in 48 hrs], [try to keep operated area as dry as possible]. Discharge Diet: Other (Comments) - Renal.
--- NOTE | 2019-01-17 11:04 | Operative Report ---
Operative Report DATE OF SURGERY: 01/17/19 PREOPERATIVE DIAGNOSIS: #1 malfunctioning AV fistula, right radiocephalic. 2. End-stage renal disease. 3. Hypertension. POSTOPERATIVE DIAGNOSIS: #1 malfunctioning AV fistula, right radiocephalic. 2. End-stage renal disease. 3. Hypertension. OPERATION: 1. Needle access into the fistula. 2. Fistula angioplasty. 3. Angiogram and interpretation. SURGEON: AARTI WOODS ANNEALING TORCH OPERATOR: None. ANESTHESIA: Moderate Sedation TISSUE REMOVED OR ALTERED: Not applicable. COMPLICATIONS: None. ESTIMATED BLOOD LOSS: 2 mL. INTRAOPERATIVE FINDINGS: Of a satisfactory seeming except for the softer, right radiocephalic fistula. Angiogram was significant for prominent flow being distally in the radial artery. The first 6 cm of the fistula relatively small with an area of approximately 70% stenosis noted adjacent to the frequently accessed and ectatic area. This was corrected by angioplasty with a 5 mm balloon. There was some improvement in the fistula quality thereafter. PROCEDURE: PROCEDURE: After verifying the procedure and having obtained informed consent, the patient's right arm and forearm were prepared with Chlorhexidine and draped out with sterile linen. Local anesthesia infiltrated. Percutaneous access into the fistula ,[retrograde], obtained about [20 cm] from the arteriovenous anastomosis using a micro puncture needle followed by micro puncture wire and then a micro puncture catheter. A 0.035 [place] wire was inserted, and over this, a 5 [place] short introducer was placed, Angiogram demonstrated the aforementioned findings. Angioplasty was elected. this was followed by a [5 mm] angioplasty balloon . Angioplasty was now done just before the anastomosis and over the anastomotic and perianastomotic segment. This was done very carefully and using a 3 mils syringe, 1 minute at the time. Angiogram demonstrated successful outcome. Angioplasty was serially done from the upper fistula down to the introducer. Inflating as before.]. Completion angiogram demonstrated [satisfactory result]. The instrumentation was now withdrawn over hand pressure for 10 minutes. Dressings applied, procedure concluded. Exposure time: 2.7 minutes Radiation: 4.17 Anjali gilbert. Contrast: 25 mL of Isovue-M 300 low osmolality. DICTATING PHYSICIAN: AARTI CONTE M.D. cc: ARATI CONTE M.D. ([id number]) >>
[2019-01-17 11:31] VITALS: BP 164/100
--- NOTE | 2019-01-17 13:26 | RADIOLOGY REPORT (SQ) ---
EXAM DESCRIPTION: FISTULAGRAM W/PLASTY COMPLETED DATE/TIME: 01/17/2019 10:04 am REASON FOR STUDY: T82.858A T82.858A STENOSIS OF OTHER VASCULAR PROSTH DEV/GRFT, INIT COMPARISON: None. FLUOROSCOPY TIME: 2.7 minutes. 141 images saved to PACS. TECHNIQUE: Intra-operative images acquired during surgical procedure to evaluate progress. NUMBER OF IMAGES: 141 LIMITATIONS: None. FINDINGS: Imaging in fluoroscopy during right upper extremity dialysis access evaluation and plasty by Dr. Edwards . Please refer to the operative report for further details. IMPRESSION: INTRA PROCEDURAL IMAGING ABOVE . COMMENT: Quality ID [id number]: Final reports for procedures using fluoroscopy that document radiation exp osure indices, or exposure time and number of fluorographic images (if radiation exposure indices are not available) Please consult full operative report of the attending physician for description of the procedure. TECHNICAL DOCUMENTATION: JOB ID: [id number] [employer]- All Rights Reserved Reading location - IP/workstation name: [email or web address]
== END 2019-01-17 11:20 | disposition home or self-care (01) ==
LOC: CCL 07:05
PROVIDERS: ATTEND Surgery
DX: T82.858A Stenosis of other vascular prosthetic devices, implants and grafts, initial encounter (principal); Y83.2 Surgical operation with anastomosis, bypass or graft as the cause of abnormal reaction of the patient, or of later complication, without mention of misadventure at the time of the procedure; I12.0 Hypertensive chronic kidney disease with stage 5 chronic kidney disease or end stage renal disease; N18.6 End stage renal disease; Z79.899 Other long term (current) drug therapy; Z99.2 Dependence on renal dialysis
CPT/HCPCS: 36415; 85027; 80048; 36902; C1752; C1725; C1887; Q9967; C1769; J2250; J1644 ×2; A9270 ×2; J3010; J3490

== ENCOUNTER 2019-05-03 14:48 | Emergency (ER) | payer MEDICAID, MEDICARE ==
--- NOTE | 2019-05-03 15:09 | ER Document Report ---
ED Medical Screen (RME) - General Chief Complaint: Urinary Problem Stated Complaint: PROBLEM URINATING Time Seen by Provider: 05/03/19 15:06 Mode of Arrival: Ambulatory Information source: Patient Notes: 58-year-old male presented to ED for complaint of pain with urination. He states that he needs to go to the bathroom and he cannot go in there when he does go it jones. He states he is never had this before. He is alert oriented respirations regular nonlabored. He does have a history of high blood pressure. He does have high blood pressure at this time. We will recheck it in the the [facility] area. States he is on dialysis but still makes urine. His blood pressure is 173/102. States he does not smoke. He just came from dialysis where they were able to do the complete dialysis treatment. I have greeted and performed a rapid initial assessment of this patient. A comprehensive ED assessment and evaluation of the patient, analysis of test results and completion of medical decision making process will be conducted by an additional ED providers. TRAVEL OUTSIDE OF THE [place] IN LAST 30 DAYS: No - Related Data Allergies/Adverse Reactions: No Known Allergies Allergy (Verified 05/03/19 15:06) Past Medical History - Past Medical History Cardiac Medical History: Reports: Hx Hypertension Denies: Hx Coronary Artery Disease, Hx Heart Attack Pulmonary Medical History: Denies: Hx Asthma, Hx Bronchitis, Hx COPD, Hx Pneumonia Neurological Medical History: Denies: Hx Cerebrovascular Accident, Hx Seizures Renal/ Medical History: Denies: Hx Peritoneal Dialysis Musculoskeltal Medical History: Denies Hx Arthritis Psychiatric Medical History: Denies: Hx Depression - Immunizations Hx Diphtheria, Pertussis, Tetanus Vaccination: No Physical Exam - Vital signs Vitals: Temp Pulse Resp BP Pulse Ox 98.1 F 87 20 212/101 H 98 05/03/19 15:01 05/03/19 15:01 05/03/19 15:01 05/03/19 15:01 05/03/19 15:01 Course - Vital Signs Vital signs: Temp Pulse Resp BP Pulse Ox 98.1 F 87 20 212/101 H 98 05/03/19 15:01 05/03/19 15:01 05/03/19 15:01 05/03/19 15:01 05/03/19 15:01
[2019-05-03 17:00] LABS: ABSOLUTE BASOPHILS # (AUTO) 0.1 10^3/uL (0.0-0.2); ABSOLUTE LYMPHOCYTES (AUTO) 1.4 10^3/uL (0.5-4.7); ABSOLUTE MONOCYTES (AUTO) 0.8 10^3/uL (0.1-1.4); ABSOLUTE NEUT (AUTO) 7.3 10^3/uL (1.7-8.2); BASOPHILS % (AUTO) 0.9 % (0-2); EOSINOPHILS % (AUTO) 0.3 % (0-6); HEMATOCRIT 36.1 % (37.9-51.0); HEMOGLOBIN 12.1 g/dL (13.5-17.0); LYMPHOCYTES % (AUTO) 14.2 % (13-45); MEAN CORPUSCULAR HGB CONC 33.5 g/dL (32.0-36.0); MEAN CORPUSCULAR VOLUME 90 fl (80-97); MONOCYTES % (AUTO) 8.7 % (3-13); PLATELET COUNT 335 10^3/uL (150-450); RED BLOOD COUNT 4.03 10^6/uL (4.35-5.55); RED CELL DISTRIBUTION WIDTH 15.3 % (11.5-14.0); SEGMENTED NEUTROPHILS % (AUTO) 75.9 % (42-78); TOTAL CELLS COUNTED % (AUTO) 100 %; WHITE BLOOD COUNT 9.6 10^3/uL (4.0-10.5)
[2019-05-03 17:29] LABS: ALBUMIN 4.3 g/dL (3.5-5.0); ALKALINE PHOSPHATASE 64 U/L (38-126); ANION GAP 13 (5-19); ASPARTATE AMINO TRANSFERASE 19 U/L (17-59); BILIRUBIN,DIRECT 0.5 mg/dL (0.0-0.4); BILIRUBIN,TOTAL 0.8 mg/dL (0.2-1.3); BLOOD UREA NITROGEN 18 mg/dL (7-20); CALCIUM 9.8 mg/dL (8.4-10.2); CARBON DIOXIDE 31 mmol/L (22-30); CHLORIDE 95 mmol/L (98-107); GLUCOSE 77 mg/dL (75-110); POTASSIUM 3.8 mmol/L (3.6-5.0); TOTAL PROTEIN 8.1 g/dL (6.3-8.2)
--- NOTE | 2019-05-04 01:10 | ER Document Report ---
ED General - General Chief Complaint: Urinary Problem Stated Complaint: PROBLEM URINATING Time Seen by Provider: 05/03/19 15:06 Mode of Arrival: Ambulatory TRAVEL OUTSIDE OF THE [place] IN LAST 30 DAYS: No - HPI Notes: Patient is a 58-year-old male, end-stage renal disease, dialysis Thursday, who presents to the emergency department for evaluation. He states he is having increased difficulty urinating, and he states it hurts when he tries to go. He states he only urinated a few drops of urine today. His symptoms have been ongoing for about a month, but they worsened over the last 2 days. Denies any fevers or chills. No nausea or vomiting. He states he has been taking his medications as prescribed. - Related Data Allergies/Adverse Reactions: No Known Allergies Allergy (Verified 05/03/19 15:06) Past Medical History - General Information source: Patient - Social History Smoking Status: Never Smoker Family History: Reviewed & Not Pertinent, CAD, Hypertension Patient has suicidal ideation: No Patient has homicidal ideation: No - Past Medical History Cardiac Medical History: Reports: Hx Hypertension Denies: Hx Coronary Artery Disease, Hx Heart Attack Pulmonary Medical History: Denies: Hx Asthma, Hx Bronchitis, Hx COPD, Hx Pneumonia Neurological Medical History: Denies: Hx Cerebrovascular Accident, Hx Seizures Renal/ Medical History: Reports: Hx End Stage Renal Disease. Denies: Hx Peritoneal Dialysis Musculoskeletal Medical History: Denies Hx Arthritis Psychiatric Medical History: Denies: Hx Depression - Immunizations Hx Diphtheria, Pertussis, Tetanus Vaccination: No Review of Systems - Review of Systems Constitutional: No symptoms reported EENT: No symptoms reported Cardiovascular: No symptoms reported Respiratory: No symptoms reported Gastrointestinal: No symptoms reported Genitourinary: See HPI Male Genitourinary: No symptoms reported Musculoskeletal: No symptoms reported Skin: No symptoms reported Neurological/Psychological: No symptoms reported Physical Exam - Vital signs Vitals: Temp Pulse Resp BP Pulse Ox 98.1 F 87 20 212/101 H 98 05/03/19 15:01 05/03/19 15:01 05/03/19 15:01 05/03/19 15:01 05/03/19 15:01 - Notes Notes: Vital signs reviewed, please refer to chart. Head is normocephalic, atraumatic. Pupils equal round, reactive to light. Neck is supple without meningismus. Heart is regular rate and rhythm. Lungs are clear to auscultation bilaterally. Abdomen is soft, nontender, normoactive bowel sounds throughout. AV fistula noted in the right forearm with palpable thrill. Extremities without cyanosis, clubbing. Skin is warm and dry. Patient is awake, alert, oriented x3. Cranial nerves II - XII are grossly intact without focal neurological deficits. Strength is plus 5 out of 5 bilateral upper and lower extremities. Sensation is intact. Reflexes symmetrical. Intact [id number], rapid alternating movements, [id number]. Course - Re-evaluation Re-evalutation: 05/04/19 01:13 Patient presents emergency department for evaluation. He states he is having increased pain and difficulty with urination. I suggested to the patient that perhaps his kidney function was worsening to the point where he no longer makes urine. Certainly his blood pressure was elevated here today. 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 Blood work failed to reveal any significant abnormalities that were unexpected in a end-stage renal patient. Bladder scan is ordered. We will continue to monitor. 05/04/19 03:39 Patient had a bladder scan which revealed approximately 67 cc of urine. The patient insisted that he was concerned about infection given his dysuria. Straight cath was obtained and urinalysis was sent. Urine does reveal some white blood cells. Given his symptoms, I am inclined to treat this as infection. He is given Keflex. Urine sent for culture. He is given Pyridium. We will send him with a small amount of the same and close follow-up. In regards to his blood pressure, it is high, and he takes multiple blood pressure medications. Did not have any signs of endorgan damage at this time. He is to follow-up with Dr. Giles in regards to this as well. He is to return to the ED with worsening. - Vital Signs Vital signs: Temp Pulse Resp BP Pulse Ox 98.0 F 89 18 200/111 H 96 05/04/19 02:05 05/04/19 02:05 05/04/19 02:05 05/04/19 02:05 05/04/19 02:05 - Laboratory Result Diagrams: 05/03/19 16:39 05/03/19 16:39 Laboratory results interpreted by me: 05/03/19 05/03/19 05/04/19 16:39 16:39 02:29 RBC 4.03 L Hgb 12.1 L Hct 36.1 L RDW 15.3 H Chloride 95 L Carbon Dioxide 31 H Creatinine 8.28 H Est GFR ( Amer) 8 L Est GFR (MDRD) Non-Af 7 L Direct Bilirubin 0.5 H Urine Protein >=500 H Urine Glucose (UA) 150 H Discharge - Discharge Clinical Impression: Hypertension, Dysuria, Oliguria, UTI (urinary tract infection) Condition: Stable Disposition: HOME, SELF-CARE Instructions: Urinary Tract Infection ([facility]), Cephalexin ([facility]) Additional Instructions: On evaluation here it seems you are only making a very small amount of urine. You are being treated for possible infection. You can also take the Pyridium as needed for pain, please note that this will cause discoloration of all of your body fluids. Follow-up with Dr. Giles and primary care this week. Return to the emergency department for worsening or new concerning symptoms of any sort. Forms: Elevated Blood Pressure
[2019-05-04 02:50] LABS: APPEARANCE,URINE CLOUDY; BILIRUBIN,URINE NEGATIVE (NEGATIVE); COLOR,URINE YELLOW; GLUCOSE, URINE 150 mg/dL (NEGATIVE); KETONES,URINE NEGATIVE (NEGATIVE); PROTEIN,URINE >=500 mg/dL (NEGATIVE); URINE SPECIFIC GRAVITY 1.013; UROBILINOGEN,URINE NEGATIVE mg/dL (<2.0)
[2019-05-04] MEDS ORDERED: PHENAZOPYRIDINE HCL 100 MG TABLET PO ONE (03:45)
[2019-05-04] MEDS ORDERED: CEPHALEXIN 500 MG CAPSULE PO ONE (03:45)
[2019-05-04 04:16] VITALS: BP 191/109
== END 2019-05-04 04:16 | disposition home or self-care (01) ==
LOC: ER 14:48
DX: N39.0 Urinary tract infection, site not specified (principal); I12.0 Hypertensive chronic kidney disease with stage 5 chronic kidney disease or end stage renal disease; N18.6 End stage renal disease; Z99.2 Dependence on renal dialysis; R30.0 Dysuria; R34 Anuria and oliguria; Z79.899 Other long term (current) drug therapy
CPT/HCPCS: 99284; 51701; 36415; 83690; 85025; 80053; 81001; A9270 ×2; 87086; J3490